=== PATIENT | male | born 1960 | race Caucasian/White ===

== ENCOUNTER → 2016-11-22 | Outpatient (CLI) | payer OTHER | END | disposition home or self-care (01) | LOC: LAB.O 18:54 | PROVIDERS: ATTEND Specialist | DX: M48.04 Spinal stenosis, thoracic region (principal) ==

== ENCOUNTER → 2017-10-11 | Outpatient (CLI) | payer OTHER ==
--- NOTE | 2017-10-12 08:12 | MRI ---
EXAM DESCRIPTION: Lumbar Spine w/o Contrast MRI. CLINICAL HISTORY: LOW BACK PAIN COMPARISON: None. TECHNIQUE: Multiplanar, multiple standard sequences, non contrast MRI, lumbar spine. FINDINGS: Transitional lumbosacral vertebra will be considered L5 for the purposes of this report. This is based upon this assumption that the vertebra with the most inferior rib pair is T12. Rudimentary L5-S1 disc is identified on axial series 601, image 3. No significant bulging. The L5-S1 facets and canal and foramina are also sacralized. Minimal left facet arthrosis. Minimal narrowing of the left foramen. L4-5: Minimal loss of posterior disc space. Trace retrolisthesis. Posterior disc midline bulge and bulge into the base of the left foramen with annular fissure. Disc is abutting the L4 nerve root in the foramen which is moderately narrowed. Mild canal narrowing. Right foramen patent. Bilateral mild flavum ligament hypertrophy and facet arthrosis. Minimal narrowing of the left subarticular recess. L3-4: Disc desiccated, but disc space maintained. Minimal anterior bulging and endplate ridging. Posterior broad-based small disc bulge also encroaching on the foramina more left than right which is moderately narrowed. Minimal narrowing of the right foramen. Minimal arthrosis of the bilateral facets and flavum ligament hypertrophy. Mild canal narrowing. L2-3: Disc desiccation with right side Modic type II endplate reactive changes, anterior disc bulging and endplate ridging. Schmorl's node superior L3 endplate. Right side disc osteophyte complex encroaching on the foramen and abutting the exiting right L2 nerve. Right posterior protrusion of the disc 6 to 7 mm encroaching on the right thecal sac and the descending right L3 nerve with right subarticular recess stenosis. Right paracentral mild canal stenosis. L1-2: Disc desiccation and anterior bulging and endplate ridging. Right anterior Modic type II endplate reactive changes and endplate ridging. Trace posterior disc bulge. Flavum hypertrophy and facet arthrosis. Canal and foramina are patent. T12-L1: Disc desiccation minimal anterior bulging. Right anterior Modic type II endplate reactive changes. Small Schmorl's nodes in the endplates. No posterior disc bulge. Bilateral foramina are patent. Bilateral mild facet arthrosis and flavum ligament hypertrophy. Canal patent. Conus terminates at T12. No scoliosis Paravertebral soft tissues negative. Normal marrow signal in the remaining vertebral bodies and the posterior elements. Vertebral bodies are not compressed at any level. IMPRESSION: 1. Lumbosacral vertebra designated L5 for the purposes of this report based upon location of T12. Rudimentary L5-S1 disc. Canal facets and foramina are sacralized. Transitional vertebra articulations can be a source of abnormal biomechanics and low back pain. 2. L4-5 disc abutting the left L4 nerve root in the foramen. Correlate for radiculopathy. 3. Posterior foraminal narrowing by L3-4 disc bulging. 4. Right posterior L2-3 disc protrusion encroaching on the thecal sac, descending right L3 nerve root and right subarticular recess. Correlate for right L3 radiculopathy. Right side disc osteophyte complex encroaching on the right foramen. Electronically signed by: Carlitos Eng MD 10/12/2017 8:11 AM CDT
== END ==
LOC: MRI 08:00
PROVIDERS: ATTEND Specialist
DX: M99.33 Osseous stenosis of neural canal of lumbar region (principal); M54.5 Low back pain

== ENCOUNTER 2018-02-18 16:14 | Inpatient (IN) | payer BC ==
--- NOTE | 2018-02-18 16:15 | HP ---
SUPERVISING PHYSICIAN: Ayan Salazar M.D. CHIEF COMPLAINT: Left sided abdominal pain. HISTORY OF PRESENT ILLNESS: This is a 57 year-old male patient who came to the hospital as a direct admission from Dr. Murphy's office. Last Sunday he presented to his primary care physician's office with left sided abdominal pain , fever and general malaise at that time. He had stated at that point for approximately 3 to 4 days he had had some left lower quadrant abdominal pain and also had a history of diverticulitis in the past. At that point he had a CT scan of the abdomen and pelvis done as well as was placed on Flagyl and Cipro and was sent home from the office. He went back to Dr. Murphy's office on for a followup regarding the CT scan. He was told at that time he did have diverticulitis, however his symptoms had improved after being placed on the antibiotics. Therefore the plan was to continue the full 10 day course of antibiotics and then followup after that. But over the weekend the patient started to feel worse again with fatigue and malaise along with low-grade fever at 99.5 and generally not feeling well. He continued to have abdominal pain which seemed to move down a little bit behind his bladder and gave him a feeling that he needed to constantly have a bowel movement. He states that he has had some soft bowel movements and has not had to strain to go, but continued to feel like he needed to go even after he went. So he went back to the doctor's office today where they repeated a CBC which did not show any leukocytosis but given his symptoms he was referred for direct admission here at the hospital. At time of examination the patient is alert and oriented with no distress, however he does have significant left lower quadrant tenderness to palpation. PAST MEDICAL HISTORY: 1. Type 2 diabetes mellitus. 2. Chronic low back pain. 3. Obstructive sleep apnea and he does not utilize a CPAP. 4. Hypertension. 5. Hyperlipidemia. PAST SURGICAL HISTORY: 1. Colonoscopy for which he was told he had diverticulosis in the past and had a polyp which was removed as well. 2. Back surgery in October of 2016 of his T-spine. 3. Appendectomy. CURRENT MEDICATIONS: 1. Amlodipine 10 mg p.o. daily. 2. Aspirin 81 mg p.o. daily. 3. Atenolol 100 mg p.o. daily. 4. Invokana 100 mg p.o. daily. 5. Celebrex 200 mg p.o. daily. 6. Hydrochlorothiazide 25 mg p.o. daily. 7. Metformin XR 1500 mg p.o. daily. 8. Simvastatin 10 mg daily. ALLERGIES: NO KNOWN DRUG ALLERGIES. FAMILY HISTORY: Father and had Alzheimer's as well as myocardial infarction. Mother has and she had COPD and lung cancer. Brother who is healthy. SOCIAL HISTORY: Occasional alcohol. No smoking. Does take edible marijuana maybe once a month. REVIEW OF SYSTEMS: CONSTITUTIONAL: Positive for fever. No chills. No recent weight loss or weight gain. Positive for fatigue and malaise. HEENT: No headaches, vision changes, ear pain, nasal congestion or throat pain. RESPIRATORY: No cough, hemoptysis or pleuritic chest pain. CARDIOVASCULAR: No chest pain, palpitations or peripheral edema. GASTROINTESTINAL: Positive for nausea but no vomiting. No constipation. No diarrhea. Positive for left sided abdominal pain. GENITOURINARY: No dysuria, frequency or flank pain. HEMATOLOGIC: No easy bruising or transfusion reaction. MUSCULOSKELETAL: Positive for chronic back pain but it has actually been doing fairly well lately. No joint pain or joint swelling. No muscle cramps. ENDOCRINE: No polydipsia, polyuria or polyphagia. No heat or cold intolerance. NEUROLOGIC: No syncope. No seizures. No paresthesias. INTEGUMENT: No rashes, lesions or wounds. PHYSICAL EXAMINATION: VITAL SIGNS: Blood pressure 144/79, heart rate 55, respiratory rate 18, temperature 97.5, oxygen saturation 95%. GENERAL: Mr. Syed is a 57 year-old male patient who is in no severe distress at this time. HEENT: Head is normocephalic and atraumatic. Eyes: Pupils are equal and reactive. Nose: With no drainage. Throat: Moist mucosa. NECK: Supple. Midline trachea. No jugular venous distention. CHEST: Symmetrical with equal rise and fall of the chest with inspiration and expiration. Lung sounds are clear to auscultation and percussion bilaterally. CARDIOVASCULAR: Regular rate and rhythm. Normal S1 and S2. ABDOMEN: Obese, soft. Positive bowel sounds. He does have noted left lower quadrant tenderness to palpation. GENITOURINARY: Exam is deferred. EXTREMITIES: Lower extremities with no edema. 2+ pulses. Capillary refill less than 2 seconds. LABORATORY: So far, is just what was done at the office and showed a white count of 7.4, hemoglobin 15.8, hematocrit 46.4, platelet count 121. ASSESSMENT: 1. Acute diverticulitis, failed outpatient therapy. 2. Diabetes mellitus type 2. 3. Hypertension. PLAN: At this point, he will be placed in inpatient setting and placed on IV antibiotics. I have repeated a CT scan and it is pending at this time. I have also spoken with Dr. Esposito who agrees to consult on the case as well and agrees with the current antibiotics as well as repeating the CT scan. We are going to hold off on DVT prophylaxis until I know for sure he is not going to have to go for surgical intervention. I will resume his home medications once they are reconciled in the computer. Will repeat laboratory values in the morning as well to ensure that they remain acceptable. #[id number] [facility]
[2018-02-18] MEDS ORDERED: SODIUM CHLORIDE 0.9% (FLUSH) 10 ML SYG IV PRN (17:38)
[2018-02-18] MEDS ORDERED: metroNIDAZOLE IV PREMIX 500MG 100 ML IVPB ONE ×2 (17:48→20:18)
[2018-02-18] MEDS ORDERED: metroNIDAZOLE IV PREMIX 500MG 500 MG in PREMIX BAG 1 BAG IVPB SCH (18:00)
[2018-02-18] MEDS: levoFLOXacin 750MG IV 750 MG in PREMIX BAG 1 BAG IVPB SCH (18:02)
[2018-02-18] MEDS: IV SET AND CAP CHANGE INJ INJ SCH (18:02)
[2018-02-18] MEDS: metroNIDAZOLE IV PREMIX 500MG 500 MG in PREMIX BAG 1 BAG IVPB SCH ×2 (18:02→23:54)
--- NOTE | 2018-02-18 19:18 | CT ---
EXAM: Abdomen/Pelvis w/Contrast CLINICAL INDICATION: 57-year-old male with diverticulitis and worsening symptoms since last week. COMPARISON: Noncontrast CT abdomen and pelvis 02/12/2018. EXAMINATION: CT of the abdomen and pelvis was performed following intravenous administration of contrast. Oral contrast was not administered. Multiplanar reformatted images were provided. This exam was performed according to our departmental dose optimization program which includes use of automated exposure control, adjustment of the mA and/or kV according to patient size and/or use of iterative reconstruction technique. FINDINGS: Chest: Evaluation through the lung bases reveals no focal opacity, pleural effusion or pneumothorax. Heart size is within normal limits. No pericardial effusion. Abdomen and pelvis: The liver, gallbladder, pancreas, spleen, bilateral kidneys and bilateral adrenal glands are within normal limits. Splenomegaly of uncertain etiology measuring up to 17 cm. Coarse calcification present within the inferior pole of the bilateral kidneys compatible with nonobstructing calculi. The vessels are patent and normal in caliber. No abdominopelvic lymph nodes are noted to be pathologically enlarged by CT measurement criteria. The bowel is within normal limits without abnormal bowel wall thickness or bowel dilation. Multiple diverticula of the sigmoid colon with interval worsening of bowel wall thickening and stranding at the level of the mid sigmoid compatible with worsening diverticulitis. No discrete organizing fluid collection or free intra-abdominal air present. The possibility of microperforation cannot be excluded. No free air. No free abdominopelvic fluid collections. The appendix is nonvisualized. The osseous structures reveal degenerative change. Multilevel endplate irregularities compatible with degenerative change. Incompletely visualized thoracic spine stabilization hardware. Six lumbar type vertebral bodies with lumbarization of the S1 level and hemisacralization of the RIGHT side transverse process. Posterior osseous spurring and disk bulge present throughout the lumbar spine with multilevel neural foraminal narrowing. IMPRESSION: 1. Multiple diverticula of the sigmoid colon with interval increase in bowel wall thickening and stranding at the level of the mid sigmoid compatible with worsening diverticulitis. 2. Coarse calcification present within the inferior pole of the bilateral kidneys compatible with nonobstructing calculi. 3. Splenomegaly of uncertain etiology. Electronically signed by: Halie Canseco MD 02/18/2018 7:17 PM CDT
[2018-02-18] MEDS: SODIUM CHLORIDE 0.9% 1000ML 1,000 ML IVS PRN (20:45)
[2018-02-19] MEDS ORDERED: metroNIDAZOLE IV PREMIX 500MG 100 ML IVPB ONE ×4 (03:59→20:01)
[2018-02-19] MEDS: MORPHINE SULFATE INJ 10 MG/ML VIAL IV PRN ×4 (04:40→20:08)
[2018-02-19] MEDS: SODIUM CHLORIDE 0.9% 1000ML 1,000 ML IVS PRN ×2 (04:44→14:20)
[2018-02-19] MEDS: metroNIDAZOLE IV PREMIX 500MG 500 MG in PREMIX BAG 1 BAG IVPB SCH ×3 (05:52→18:04)
[2018-02-19] MEDS ORDERED: NON-FORMULARY MEDICATION 1 EA MIS (Atenolol [Atenolol] 100 MG) PO SCH (11:15)
[2018-02-19] MEDS ORDERED: CANAGLIFLOZIN 100 MG PO SCH (11:15)
[2018-02-19] MEDS ORDERED: amLODIPine BESYLATE 5 MG TAB ONE (11:25)
[2018-02-19] MEDS ORDERED: ATENOLOL 25 MG TAB ONE (11:26)
[2018-02-19] MEDS: SIMVASTATIN 10 MG TAB PO SCH (11:33)
[2018-02-19] MEDS: ASPIRIN (CHEWABLE) 81 MG TAB PO SCH (11:33)
--- NOTE | 2018-02-19 11:33 | PN ---
SUPERVISING PHYSICIAN: Citlaly Salazar MD DATE: 02/19/18 SUBJECTIVE: The patient feels a little bit better today. He did have some pain overnight and required some pain medication. CT scan that was done shows a little bit of worsening of the diverticulitis from that done last week. He does complain of being thirsty and actually a little bit hungry at this time. OBJECTIVE: VITAL SIGNS: Blood pressure 155/83. Heart rate 54. Respiratory rate 15. Temperature 98.2. Oxygen saturation 95%. GENERAL: Mr. Syed is a 57-year-old male patient who is in no active distress currently. NEUROLOGIC: Alert and oriented. LUNGS: Clear to auscultation bilaterally. CARDIOVASCULAR: Regular rate and rhythm. Normal S1, S2. ABDOMEN: Soft, soft. Positive bowel sounds. Still with left lower quadrant tenderness to palpation. LABORATORY: White count 4.1, stable hemoglobin, platelet count 93. Chemistry unremarkable although he does have a glucose of 142. He also had a liver ultrasound today that was scheduled as outpatient, so the results are not actually done yet. ASSESSMENT: 1. Acute diverticulitis, failed outpatient p.o. antibiotic therapy. 2. Diabetes mellitus, type 2. 3. Hypertension. PLAN: Continue the current IV antibiotics. Dr. Esposito has seen the patient this morning as well and feels he can advance to a clear liquid diet, so I have ordered this as well. I have updated the patient on plan of care. We will recheck labs tomorrow morning. #[id number] [facility]
[2018-02-19] MEDS: amLODIPine BESYLATE 5 MG TAB PO SCH (11:43)
[2018-02-19] MEDS ORDERED: ATENOLOL 25 MG TAB PO SCH (11:45)
--- NOTE | 2018-02-19 12:54 | US ---
EXAM DESCRIPTION: Liver ultrasound limited right upper quadrant CLINICAL HISTORY: R10.84 COMPARISON: None Available. TECHNIQUE: Right upper quadrant ultrasound FINDINGS: Pancreas aorta and inferior vena cava are not well seen due to overlying bowel gas obscuring much of the retroperitoneum. Liver: The liver is homogeneous in texture with increased echogenicity consistent with diffuse hepatic steatosis. No focal liver lesion or intrahepatic bile duct dilatation. No liver surface irregularity. Normal appearance of the portal vein and hepatic veins. Liver length of 17.1 cm is within normal limits. Gallbladder: Gallbladder appears normal with no intraluminal stones or wall thickening. Common bile duct: Normal caliber measuring 5.4 mm. Right kidney: Renal length is 11 cm. Normal cortical echogenicity. Cortical thickness is normal. No hydronephrosis is seen. No renal mass. 7 mm echogenic focus is seen which may be a small right renal calculus. Another questionable 6 mm echogenic focus is seen, not as convincing. IMPRESSION: Hyperechoic liver consistent with diffuse hepatic steatosis. Normal sonographic appearance of the gallbladder and common bile duct. Electronically signed by: Anup Zaragoza MD 02/19/2018 11:45 AM CDT
--- NOTE | 2018-02-19 13:54 | CONS ---
DATE OF CONSULTATION: 02/19/18 HISTORY OF PRESENT ILLNESS: The patient is a 57-year-old male who was seen by Dr. Murphy last week with abdominal pain. CT scan revealed diverticulitis and he was started on oral Cipro and Flagyl. He initially improved and then over this past weekend, he became much more uncomfortable. He was seen in Dr. Murphy's office yesterday and despite having a normal white count was admitted for failure of outpatient therapy. A CT scan last night revealed no signs of perforation or abscess, but did show worsening inflammatory process involving the sigmoid colon. He denies change in his bowel habits, blood per rectum or melanotic stools. He does report that he had a colonoscopy approximately 2 years ago which revealed the diverticular disease and a single polyp which was benign and was scheduled for repeat colonoscopy in 5 years. PAST MEDICAL HISTORY: 1. Type 2 diabetes mellitus. 2. Back pain, for which he has undergone a major procedure in the thoracic spine. 3. Obstructive sleep apnea, but does not use CPAP. 4. Hypertension. 5. Hyperlipidemia. PAST SURGICAL HISTORY: 1. Appendectomy as a child. 2. Major thoracic spine surgery. CURRENT MEDICATIONS: 1. Amlodipine. 2. Aspirin. 3. Atenolol. 4. Invokana. 5. Celebrex. 6. Hydrochlorothiazide. 7. Metformin. 8. Simvastatin. ALLERGIES: NO KNOWN DRUG ALLERGIES. FAMILY HISTORY: History of chronic obstructive pulmonary disease, lung cancer, myocardial infarction. SOCIAL HISTORY: The patient drinks alcohol rarely and does not smoke. REVIEW OF SYSTEMS: Unremarkable except as in the history of present illness. PHYSICAL EXAMINATION: GENERAL: The patient is awake, alert, cooperative, in mild to moderate acute distress. VITAL SIGNS: The patient is currently afebrile, normotensive. HEENT: Sclerae nonicteric. Mucous membranes moist. NECK: Without adenopathy. BACK: Without CVA tenderness. HEART: Regular rate and rhythm. ABDOMEN: Soft, diffusely tender with mild guarding. There is no mass. RECTAL: Deferred. EXTREMITIES: Without cyanosis, clubbing or edema. LABORATORY: Normal white blood cell count this morning. CT scan revealed worsening diverticulitis with no free air. PLAN: The patient has been at bowel rest overnight. He denies nausea, fever, but is still quite uncomfortable on physical examination. I agree with the continued IV antibiotics with the increased dose as opposed to his outpatient dosing. We will give him a clear liquid diet and his home medications. #[id number] [facility]
[2018-02-19] MEDS: levoFLOXacin 750MG IV 750 MG in PREMIX BAG 1 BAG IVPB SCH (16:30)
[2018-02-20] MEDS: metroNIDAZOLE IV PREMIX 500MG 500 MG in PREMIX BAG 1 BAG IVPB SCH ×5 (00:30→23:40)
[2018-02-20] MEDS: SODIUM CHLORIDE 0.9% 1000ML 1,000 ML IVS PRN ×3 (00:55→22:17)
[2018-02-20] MEDS ORDERED: metroNIDAZOLE IV PREMIX 500MG 100 ML IVPB ONE ×5 (04:27→19:29)
[2018-02-20] MEDS: CANAGLIFLOZIN 100 MG PO SCH (06:43)
[2018-02-20] MEDS: MORPHINE SULFATE INJ 10 MG/ML VIAL IV PRN ×3 (08:33→20:32)
[2018-02-20] MEDS ORDERED: MAGNESIUM HYDROXIDE 30 ML UD PO ONE (09:01)
[2018-02-20] MEDS ORDERED: MAGNESIUM HYDROXIDE 30 ML UD ONE (09:11)
[2018-02-20] MEDS: ASPIRIN (CHEWABLE) 81 MG TAB PO SCH (09:12)
[2018-02-20] MEDS: SIMVASTATIN 10 MG TAB PO SCH (09:12)
[2018-02-20] MEDS: ATENOLOL 25 MG TAB PO SCH (09:12)
[2018-02-20] MEDS: amLODIPine BESYLATE 5 MG TAB PO SCH (09:12)
--- NOTE | 2018-02-20 11:31 | RAD ---
EXAM DESCRIPTION: Abdomen Flat Upright CLINICAL HISTORY: abd pain COMPARISON: None. FINDINGS: AP supine and upright views of the abdomen show a nonspecific, nonobstructive bowel gas pattern with no evidence for free intraperitoneal air. No air-filled dilated loops of small bowel are seen. No significant air-fluid levels are identified. No obvious organomegaly is seen. There is an approximately 1 cm calcification overlying the lower pole region of the left kidney. No obvious calcifications in the expected location of the ureters is seen. Spinal hardware fixation of the lower thoracic spine is visualized. The visualized lung bases are unremarkable. IMPRESSION: Nonspecific abdominal series Left nephrolithiasis is seen. Electronically signed by: Anshul Tse MD 02/20/2018 11:30 AM CDT
[2018-02-20] MEDS: levoFLOXacin 750MG IV 750 MG in PREMIX BAG 1 BAG IVPB SCH (16:45)
--- NOTE | 2018-02-20 16:52 | PN ---
DATE: 02/20/18 SUPERVISING PHYSICIAN: Ayan Salazar M.D. SUBJECTIVE: The patient is lying in bed. He continues complaints of abdominal discomfort in the lower left and right quadrants as well as extending up into the right upper quadrant. He says he feels like the pain is behind his bladder , but not in his back. Denies chest pain, nausea or vomiting, shortness of breath. OBJECTIVE: VITAL SIGNS: He is afebrile, blood pressure 147/80, respiratory rate 18, O2 sat is 94% on room air. RESPIRATORY: Essentially clear to auscultation bilaterally. CARDIAC: Regular rate and rhythm. GASTROINTESTINAL: Abdomen is soft, nondistended. It is moderately tender in the left lower and right lower quadrant and it is mildly tender in the right upper quadrant. There is no guarding or rebound tenderness. Bowel sounds are very hypoactive. NEUROLOGIC: He is awake, alert and oriented times three. LABORATORY: WBCs are 4.2. Electrolytes are basically within normal limits with the exception of his calcium is slightly low at 8.3. Abdominal x-ray shows nonspecific abdominal series. All other labs and films have been reviewed via the EMR. ASSESSMENT: 1. Acute diverticulitis, failed outpatient p.o. antibiotic therapy. 2. Diabetes mellitus, type 2. 3. Hypertension. 4. Fatty liver disease. PLAN: We will continue present supportive care. He will continue on clear liquids and I will follow as Dr. Esposito recommends. I have also given him 60 mL of Milk of Magnesia and will repeat his lab in the morning. Will continue to monitor him closely and follow as needed. Dr. Salazar is the collaborating physician available for consultation. #[id number] [facility]
[2018-02-21] MEDS: CANAGLIFLOZIN 100 MG PO SCH (06:13)
[2018-02-21] MEDS: metroNIDAZOLE IV PREMIX 500MG 500 MG in PREMIX BAG 1 BAG IVPB SCH ×2 (06:13→12:45)
[2018-02-21] MEDS ORDERED: POTASSIUM CHLORIDE 20 MEQ TAB PO ONE (08:58)
[2018-02-21] MEDS ORDERED: MAGNESIUM HYDROXIDE 30 ML UD PO ONE (09:17)
[2018-02-21] MEDS: ASPIRIN (CHEWABLE) 81 MG TAB PO SCH (09:23)
[2018-02-21] MEDS: ATENOLOL 25 MG TAB PO SCH (09:23)
[2018-02-21] MEDS: amLODIPine BESYLATE 5 MG TAB PO SCH (09:23)
[2018-02-21] MEDS: SIMVASTATIN 10 MG TAB PO SCH (09:27)
[2018-02-21] MEDS: SODIUM CHLORIDE 0.9% 1000ML 1,000 ML IVS PRN ×2 (09:30→20:04)
--- NOTE | 2018-02-21 10:23 | PN ---
SUPERVISING PHYSICIAN: Citlaly Salazar MD DATE: 02/21/18 SUBJECTIVE: The patient is standing up in his hospital room. He says he feels some better although he still has some lower abdominal pain. He has only had two very small bowel movements overnight. He has tolerated his clear liquids without any problems. Dr. Esposito was in the room during his examination and we discussed his plan of care. OBJECTIVE: VITAL SIGNS: Afebrile. Heart rate 56. Blood pressure 162/89. Respiratory rate 18. O2 saturation 95% on room air. RESPIRATORY: Essentially clear to auscultation bilaterally. CARDIAC: Regular rate and rhythm. GASTROINTESTINAL: Abdomen is soft, nondistended, very mildly tender in the left and right lower quadrants. There is no rebound tenderness or guarding. Bowel sounds are very hypoactive. NEUROLOGIC: He is awake, alert and oriented times three. LABORATORY: Potassium is slightly low this morning at 3.5. Glucose is 136. Calcium 8.3. AST 69. The remainder of his chemistry is within normal limits. All other labs and films have been reviewed via the EMR. ASSESSMENT: 1. Acute diverticulitis, failed outpatient p.o. antibiotic therapy. 2. Diabetes mellitus, type 2. 3. Hypertension. 4. Fatty liver disease. PLAN: We will continue present supportive care. I will defer to Dr. Esposito for recommendations of patient's care. Per Dr. Esposito, general surgeon, we will give him an additional dose of 60 mL of Milk of Magnesia. I will also change his IV Flagyl to p.o. this evening. He will get his IV dose of Levaquin today and we will change his Levaquin to p.o. tomorrow. It is to be noted that he will be on a higher dose of Levaquin of 750 mg daily. He has also gotten a dose of potassium replacement and I will check his labs in the morning. Hopefully he can advance his diet tomorrow and he can be discharged in the next day so. We will continue to monitor him closely and follow as needed. #[id number] [facility]
[2018-02-21] MEDS ORDERED: metroNIDAZOLE IV PREMIX 500MG 100 ML IVPB ONE (12:42)
[2018-02-21] MEDS ORDERED: levoFLOXacin 750MG IV 750 MG in PREMIX BAG 1 BAG IVPB SCH (17:00)
[2018-02-21] MEDS: metroNIDAZOLE 500 MG TAB PO SCH (17:47)
[2018-02-21] MEDS: IV SET AND CAP CHANGE INJ INJ SCH (18:21)
[2018-02-21] MEDS ORDERED: ZOLPIDEM TARTRATE 5 MG TAB PO PRN (19:45)
[2018-02-21] MEDS ORDERED: ALPRAZolam 0.25 MG TAB PO PRN (19:45)
[2018-02-21] MEDS ORDERED: MAGNESIUM HYDROXIDE 30 ML UD PO SCH (21:09)
[2018-02-22] MEDS: metroNIDAZOLE 500 MG TAB PO SCH ×2 (00:22→06:04)
[2018-02-22 02:47] VITALS: TEMP 97.6
[2018-02-22] MEDS: SODIUM CHLORIDE 0.9% 1000ML 1,000 ML IVS PRN (03:55)
[2018-02-22 06:12] VITALS: O2SAT 96
--- NOTE | 2018-02-22 06:42 | RAD ---
PROCEDURE: Abdomen Flat Upright Clinical History: Diverticulitis Indication: Same as above Comparison: 02/20/2018 Technique: Three views of the abdomen and pelvis were done. Findings: There is no gross evidence of free air in the abdomen or the pelvis . The small and large bowel gas pattern does not show any evidence of obstruction, ileus or bowel wall thickening. The visualized lung bases are unremarkable . Small calcified enterolith is seen in the left lower quadrant of the abdomen There is no constipation. Impression: Unremarkable bowel gas pattern Location of Interpretation: [id number] Electronically signed by: Zeus Richardson MD 02/22/2018 6:41 AM CDT Workstation: [id number]
[2018-02-22] MEDS: CANAGLIFLOZIN 100 MG PO SCH (07:57)
[2018-02-22] MEDS: ATENOLOL 25 MG TAB PO SCH (08:58)
[2018-02-22] MEDS: amLODIPine BESYLATE 5 MG TAB PO SCH (08:58)
[2018-02-22 08:59] VITALS: BP 144/78
[2018-02-22] MEDS: SIMVASTATIN 10 MG TAB PO SCH (08:59)
[2018-02-22] MEDS: ASPIRIN (CHEWABLE) 81 MG TAB PO SCH (08:59)
[2018-02-22] MEDS ORDERED: levoFLOXacin 500 MG TAB PO SCH (14:00)
--- NOTE | 2018-02-26 14:14 | DS ---
SUPERVISING PHYSICIAN: Citlaly Salazar MD ADMISSION DIAGNOSIS: 1. Acute diverticulitis, failed outpatient therapy. 2. Diabetes mellitus, type 2. 3. Hypertension. DISCHARGE DIAGNOSIS: 1. Acute diverticulitis, failed to respond to outpatient treatment with oral antibiotics, improving with parenteral antibiotics and being stable. 2. Diabetes mellitus, type 2, stable. 3. Hypertension, stable. 4. Fatty liver disease, chronic. 5. Thrombocytopenia, uncertain etiology although the patient showed splenomegaly on CT findings. REASON FOR HOSPITALIZATION: Mr. Syed is a 57-year-old male patient who initially presented on 02/18/18 for direct admission from Dr. Murphy's office. It was noted the Sunday before, he presented Dr. Murphy's office with left sided abdominal pain, fever and general malaise. He had stated at that point for approximately 3 to 4 days he had had some left lower quadrant abdominal pain and also had a history of diverticulitis in the past. He then had a CT scan of the abdomen and pelvis and was placed on Flagyl and Cipro and treated as an outpatient. He presented back to Dr. Murphy's office on for a followup regarding the CT scan. He was told at that time he did have diverticulitis, however, his symptoms had improved after being placed on the antibiotics. Therefore, the plan was to continue the full 10-day course of antibiotics and then followup after that. However, over the weekend, the patient started to feel worse again with fatigue and malaise along with low- grade fever at 99.5 and generally not feeling well. He continued to have increasing abdominal pain which seemed to move down a little bit behind his bladder and gave him a feeling that he needed to constantly have a bowel movement. He noted that he had had some soft bowel movements and not had to strain to go, but continued to feel like he needed to go even after he went. He went back to the Dr. Murphy's office on the date of admission where they repeated a CBC which did not show any leukocytosis, but given his continued symptoms that were worsening despite outpatient treatment, he was referred for direct admission to the hospital. He was admitted to the Medical/Surgical Floor in stable condition for treatment of left lower quadrant tenderness secondary to diverticulitis failing to respond to outpatient treatment. LABORATORY: White count on admission was normal at 5,400. At discharge, it was 4,200. Hemoglobin and hematocrit were stable and at discharge were 14.8 and 44.3 respectively. Platelet counts were low and at discharge was 89,000. Differential was without a left shift. On chemistries, initial electrolytes were within normal limits with potassium 3.6, BUN 17, creatinine 1.04. At discharge, potassium was a little low at 3.4. Otherwise, all other electrolytes were within normal limits. BUN was less than 5 and creatinine 0.94. Calcium was normal and at discharge was 8.5. Liver functions were all normal at admission. However, prior to discharge, his AST had gone up slightly to 69. No urinalysis was completed. MICROBIOLOGY: No specimens were submitted. RADIOLOGY: Initially he had abdominopelvic CT on admission from Dr. Murphy's office with contrast and per radiologic interpretation there was note of multiple diverticula in the sigmoid colon with interval increase in bowel wall thickening and stranding to the level of the mid sigmoid, compatible with worsening diverticulitis. There was also note of coarse calcifications in the superior pole of bilateral kidneys compatible with nonobstructing calculi. There was note of of splenomegaly of uncertain etiology. Additional radiographic studies included a liver ultrasound and per radiologic interpretation showed hyperechoic liver consistent with diffuse hepatic steatosis, normal sonographic appearance of the gallbladder and common bile duct. This was followed up with additional abdominal x-rays. On 02/20/18 per radiologic interpretation showed nonspecific abdominal series. Final series was completed on date of discharge, 02/22/18 and per radiologic interpretation shows unremarkable bowel gas pattern. CONSULTATIONS: Medical general surgery with Dr. Esposito. Please see his consultation note for full details. PHYSICAL EXAMINATION AT DISCHARGE: VITAL SIGNS: Temperature 97.6. Pulse 58. Blood pressure 144/78. Oxygen saturation 96% on room air. GENERAL APPEARANCE: The patient was pleasant, in no acute distress, complaining of no additional pain. CHEST: Lungs clear to auscultation bilaterally. HEART: Regular rate and rhythm. ABDOMEN: Soft, nondistended with just very mild continued tenderness on the right lower quadrant. Bowel sounds were normal sounding. NEUROLOGIC: Alert and oriented times 3. HOSPITAL COURSE: Mr. Syed was a direct admission as noted above for complicated diverticulitis that had failed to respond to outpatient treatment measures. He was started on IV antibiotics to include Flagyl and Levaquin as well as placed initially on NPO status. After his pain resolved and he showed some clinical improvement, his diet was advanced. Dr. Esposito did follow the patient along and the patient showed no complications. On the morning of discharge, he was clinically improved well enough to continue with outpatient management. PLAN: Mr. Syed was discharged on 02/22/18 with instructions to followup with Dr. Murphy on 02/26/18 at 14:30. It should be noted he did have evidence of splenomegaly on the CT findings along with thrombocytopenia and this needs to be followed up in the outpatient setting. He was to resume his home medications as instructed. Diet was to be low residual diet as tolerated. Activity to increase as per physical therapy and as tolerated. He was told to return to the hospital should he have any concerning symptoms. At discharge, new prescriptions included: 1. Align 4 mg daily. 2. Levaquin 750 mg daily, #7. 3. Flagyl 500 mg 3 times a day, #21. All other medications prior to admission were continued. Condition on discharge was stable and improved. #[id number] #[id number] [facility]
== END 2018-02-22 11:45 | disposition home or self-care (01) | DRG 392 ==
LOC: MS 16:14
PROVIDERS: ADMIT Nurse Practitioner; ATTEND Nurse Practitioner Family
PROC: BW210ZZ Computerized Tomography (CT Scan) of Abdomen and Pelvis using High Osmolar Contrast (ICD-10-PCS; principal; 2018-02-18)
DX: K57.32 Diverticulitis of large intestine without perforation or abscess without bleeding (principal); K76.0 Fatty (change of) liver, not elsewhere classified; M54.9 Dorsalgia, unspecified; E11.9 Type 2 diabetes mellitus without complications; G47.33 Obstructive sleep apnea (adult) (pediatric); I10 Essential (primary) hypertension; E78.5 Hyperlipidemia, unspecified; D69.6 Thrombocytopenia, unspecified; R16.1 Splenomegaly, not elsewhere classified; Z79.82 Long term (current) use of aspirin; Z79.1 Long term (current) use of non-steroidal anti-inflammatories (NSAID); Z79.84 Long term (current) use of oral hypoglycemic drugs; Z79.899 Other long term (current) drug therapy

== ENCOUNTER 2018-05-02 02:54 | Emergency (ER) | payer BC ==
[2018-05-02] MEDS ORDERED: ONDANSETRON INJ 4 MG/2 ML VIAL IV ONE (03:22)
[2018-05-02] MEDS ORDERED: MORPHINE SULFATE INJ 10 MG/ML VIAL IV ONE (03:22)
--- NOTE | 2018-05-02 03:22 | ED.PDOC ---
History of Present Illness - General Chief Complaint: Abdominal Pain Stated Complaint: lower abd pain Time Seen by Provider: 05/02/18 03:14 Information Source: patient Exam Limitations: no limitations - History of Present Illness Initial Comments: LLQ ABD PAIN, STARTED TONIGHT. SEVERE SPASMS. FEELS LIKE THE DIVERTICULITIS BOUT FROM 3 MOS AGO. DIVERTICULITIS FIRST DX'D IN 2005. LLQ PAIN, RADIATING TO BLADDDER. POS DIARRHEA. POS NAUSEA BUT NO EMESIS. ABD FEELS BLOATED. NOTE: PT IS NOT CURRENTLY ON LEVAQUIN THUS THERE IS NO MEDICATION INTERACTION WITH ZOFRAN. Abdominal Pain Onset Location: LLQ, generalized abdomen Pain Radiation: groin Quality: cramping Timing/Duration: 4-6 hours Improving Factors: nothing Worsening Factors: nothing Associated Symptoms: diarrhea, nausea/vomiting Review of Systems - Review of Systems Constitutional: Denies: chills, diaphoresis, fever, malaise, weakness EENTM: States: no symptoms reported Respiratory: States: no symptoms reported Cardiology: States: no symptoms reported Gastrointestinal/Abdominal: States: abdominal pain, diarrhea, nausea Genitourinary: Denies: dysuria, frequency, hematuria Musculoskeletal: States: no symptoms reported Skin: States: no symptoms reported Neurological: States: no symptoms reported Endocrine: States: no symptoms reported Hematologic/Lymphatic: States: no symptoms reported All other Systems: Reviewed and Negative Past Medical History (General) - Patient Medical History Hx Seizures: No Hx Stroke: No Hx Asthma: No Hx of COPD: No Hx Congestive Heart Failure: No Hx Pacemaker: No Hx Hypertension: Yes Hx Diabetes: Yes Hx MRSA: No - Social History Hx Alcohol Use: No Hx Substance Use: No Hx Physical Abuse: No Hx Emotional Abuse: No Family Medical History - Family History Father Family History: Unknown Mother Family History: Unknown Physical Exam - Physical Exam General Appearance: Alert, Obvious distress, Obese Eyes, Ears, Nose, Throat Exam: PERRL/EOMI, normal ENT inspection Neck: full range of motion, normal inspection Respiratory: chest non-tender, lungs clear, normal breath sounds Cardiovascular/Chest: normal peripheral pulses, regular rate, rhythm, no murmur Peripheral Pulses: No deficit Gastrointestinal/Abdominal: normal bowel sounds, no organomegaly, no pulsatile mass, distended, tenderness - LLQ > GENERALIZED. Male Genitalia: normal genitalia Back Exam: CVA tenderness (R), CVA tenderness (L) Extremity: normal range of motion, normal inspection Neurologic: alert, normal mood/affect Skin Exam: normal color, warm/dry Lymphatic: no adenopathy Progress - Progress Progress: 05/02/18 04:47 CT = BL NEPHROLITHIASIS. LARGEST L SIDE 1.1 CM BUT NON-OBSTRUCTING. FATTY LIVER. HEPATOSPLEENOMEGALY. DIVERTICULOSIS BUT NO DIVERTICULITIS. NOT A SURGICAL ABDOMEN. CBC UNREMARKABLE. UA PROTEIN AND GLUCOSE FROM NIDDM. CMP ELEV AST FROM FATTY LIVER. SAFE FOR DC HOME ON CODEINE FOR PAIN CONTROL AND ZOFRAN FOR NAUSEA. NO ABX INDICATED. Departure - Departure Clinical Impression: LLQ abdominal pain, Nausea, Elevated SGOT (AST), Steatohepatitis, Hepatosplenomegaly, Nephrolithiasis LLQ abdominal tenderness Qualifiers: Presence of rebound: absent Qualified Code(s): R10.814 - Left lower quadrant abdominal tenderness Diarrhea Qualifiers: Diarrhea type: unspecified type Qualified Code(s): R19.7 - Diarrhea, unspecified Proteinuria Qualifiers: Proteinuria type: unspecified Qualified Code(s): R80.9 - Proteinuria, unspecified Diabetes mellitus Qualifiers: Diabetes mellitus type: type 2 Diabetes mellitus emt intermediate insulin use: without emt intermediate use Diabetes mellitus complication status: without complication Qualified Code(s): E11.9 - Type 2 diabetes mellitus without complications Diverticulosis Qualifiers: Diverticulosis site: diverticulosis of large intestine Diverticulosis bleeding : diverticulosis without bleeding Qualified Code(s): K57.30 - Diverticulosis of large intestine without perforation or abscess without bleeding Disposition: Discharge to Home or Self Care Condition: Good Departure Forms: ED Discharge - Pt. Copy, Patient Portal Self Enrollment Instructions: Kidney Stones in Adults Diet: diabetic diet Activity: increase activity as tolerated Referrals: Trace Murphy MD [Primary Care Provider] - 1 Week Prescriptions: Acetaminophen W/ Codeine [Acetaminophen/Codeine Javon] 1 - 2 tab PO Q8H PRN #15 tab PRN Reason: Pain Ondansetron [Zofran Odt] 8 mg PO Q8H PRN #15 tab PRN Reason: Nausea Home Medications: Ambulatory Orders Aspirin [Aspirin Adult Low Dose] 81 mg PO DAILY 02/18/18 Atenolol 100 mg PO DAILY 02/18/18 Canagliflozin [Invokana] 100 mg PO DAILY 02/18/18 Celecoxib [Celebrex] 200 mg PO DAILY 02/18/18 Hydrochlorothiazide 25 mg PO DAILY 02/18/18 Simvastatin 10 mg PO DAILY 02/18/18 Acetaminophen W/ Codeine [Acetaminophen/Codeine Javon] 1 - 2 tab PO Q8H PRN #15 tab 05/02/18 Ondansetron [Zofran Odt] 8 mg PO Q8H PRN #15 tab 05/02/18 Additional Instructions: Please see your doctor in 3-5 days if the pain is not improving.
[2018-05-02 03:24] VITALS: TEMP 97.6; O2SAT 96
--- NOTE | 2018-05-02 03:57 | CT ---
CT abdomen and pelvis without contrast on 05/02/2018 CLINICAL INDICATION: Generalized abdominal pain, history of diverticulitis TECHNIQUE: Multiple axial images are obtained throughout the abdomen and pelvis without the administration of contrast. This exam was performed according to our departmental dose-optimization program, which includes automated exposure control, adjustment of the mA and/or kV according to patient size and/or use of iterative reconstruction technique. Total DLP is 1532.38 mGy*cm. COMPARISON: 02/18/2018 FINDINGS: Abdomen: The lung bases are clear. There is fatty infiltration of the liver. Splenomegaly is noted with the spleen measuring at least 18 cm in greatest [id number] length. Mild hepatomegaly is noted. There are nonobstructing bilateral renal stones with the largest stone in the lower pole of the left kidney measuring 1.1 cm. There are no ureteral stones and no hydronephrosis. The unenhanced solid abdominal organs are otherwise unremarkable. Vascular calcifications are noted. There is no abdominal adenopathy. There is no free fluid or free air within the abdomen. The abdominal portion of the GI tract is unremarkable. Pelvis: There is diverticulosis without evidence of diverticulitis now noted. Pelvic portion of the GI tract is otherwise unremarkable. There is no free fluid in the pelvis. There is no pelvic adenopathy. Degenerative and postsurgical changes are noted in the spine. No acute bony abnormality is noted. IMPRESSION: 1. Diverticulosis without definite changes of diverticulitis now noted. 2. Bilateral nephrolithiasis. 3. Hepatosplenomegaly. Electronically signed by: Latrell Mujica 05/02/2018 3:55 AM [employer]
[2018-05-02 05:17] VITALS: BP 135/77
== END 2018-05-02 05:17 | disposition home or self-care (01) ==
LOC: ER 02:54
DX: K57.30 Diverticulosis of large intestine without perforation or abscess without bleeding (principal); E11.9 Type 2 diabetes mellitus without complications; K75.81 Nonalcoholic steatohepatitis (NASH); R16.2 Hepatomegaly with splenomegaly, not elsewhere classified; R80.9 Proteinuria, unspecified; R74.0 Nonspecific elevation of levels of transaminase and lactic acid dehydrogenase [LDH]; N20.0 Calculus of kidney; R19.7 Diarrhea, unspecified; I10 Essential (primary) hypertension; Z79.82 Long term (current) use of aspirin; Z79.899 Other long term (current) drug therapy
CPT/HCPCS: 74176; 80053; 81001; 83690; 85025; J2270; J2405

== ENCOUNTER → 2019-01-31 | Outpatient (CLI) | payer OTHER ==
--- NOTE | 2019-01-31 15:11 | MRI ---
EXAM DESCRIPTION: Lumbar Spine w/o Contrast : Magnetic Resonance Imaging. CLINICAL HISTORY: M545.5 M54.15 COMPARISON: MRI scan of the lumbar spine without contrast 10/11/2017. TECHNIQUE: Multiplanar, multiple standard sequences, non contrast MRI, lumbar spine. FINDINGS: In keeping with the designation of the vertebra as on the prior study, a sacralized L5 segment present with rudimentary L5-S1 disc space and disc. The disc is identified on T2 axial series 501, image 3. No posterior bulge. Sacralization of the bilateral L5-S1 foramina and the canal at the L5-S1 level. No canal or foraminal stenosis. No bony encroachment on the canal. L4-L5: Disc desiccation and minimal disc space loss. Grade 1 retrolisthesis 3.5 mm. Posterior midline focal bulge or midline protrusion of the disc abutting the thecal sac with minimal inferior extension of the disc below the L5 superior endplate. Stable since the prior study. Minimal effacement of the left subarticular recess. Disc bulging into the left foramen abutting the exiting left L4 nerve. Moderate narrowing. Also seen on the prior study. Right foramen is patent. Minimal hypertrophic arthrosis of the bilateral facets. L3-L4: Posterior broad-based disc bulge abutting the thecal sac. Bilateral mild hypertrophic facet arthrosis and thickening of the flavum ligaments more left than right. AP canal diameter 13 mm. Bilateral mild foraminal narrowing. Stable since the prior study. L2-L3: Disc desiccation and disc space loss. Anterior minimal bulging. Schmorl's node in the superior L3 endplate. Moderate endplate reactive changes to the right of midline with disc spur complex encroaching on the foramen and abutting the exiting right L2 nerve. Moderate narrowing. On the foramen with mild narrowing of the left foramen. Posterior bilateral disc bulge, more on the right than the left encroaching on the thecal sac and effacing the right subarticular recess. AP canal diameter 7 mm to the right of midline. Degree of protrusion to the right of midline is less than on the prior study. L1-L2: Disc desiccation with anterior bulging and endplate ridging. Small Schmorl's nodes superior L2 endplate. Bilateral hypertrophic facet arthrosis and flavum ligament thickening with mild canal narrowing. Bilateral foramina are patent. No change from the prior study. T12-L1: Disc desiccation with Schmorl's node superior and inferior endplates. Posterior disc space loss. No bulging. Conus terminates just above the disc space. Posterior elements are unremarkable. Bilateral foramina are patent. Stable from the prior study. Mild L1-L3 levoscoliosis. Paravertebral soft tissues bilateral paraspinal muscle atrophy.. Cord normal signal and caliber. Normal marrow signal in the remaining vertebral bodies and the posterior elements. Vertebral bodies are not compressed at any level. IMPRESSION: 1. Transitional vertebra is a sacralized L5 segment with sacralization of the bilateral foramina and the canal and right transverse process. Narrowing of the canal and foramina but no stenosis. Rudimentary L5-S1 disc is degenerated but no bulging. No change from the prior study. 2. Grade 1 retrolisthesis L4-L5. Focal bulge or protrusion of the disc in the midline and minimal inferior extension narrowing the left subarticular recess. Grade 1 retrolisthesis. Moderate narrowing of the canal and the foramina. 3. Bilateral posterior herniation of the L2-L3 disc more on the right but less than on the prior study. Moderate canal stenosis to the right of midline with effacement of the right subarticular recess. Correlate for right L3 radiculopathy. Right side spondylosis encroaching on the foramen and abutting the exiting right L2 nerve. Stable since the prior study. Electronically signed by: Carlitos Eng MD 01/31/2019 3:09 PM CDT
== END ==
LOC: MRI 09:51
PROVIDERS: ATTEND General Practice
DX: M51.17 Intervertebral disc disorders with radiculopathy, lumbosacral region (principal); M48.061 Spinal stenosis, lumbar region without neurogenic claudication; M47.26 Other spondylosis with radiculopathy, lumbar region; Q76.49 Other congenital malformations of spine, not associated with scoliosis

== ENCOUNTER 2019-06-17 19:48 | Emergency (ER) | payer OTHER ==
[2019-06-17] MEDS ORDERED: ACETAMINOPHEN 325 MG TAB PO ONE (20:12)
[2019-06-17] MEDS ORDERED: SODIUM CHLORIDE 0.9% 1000ML 1,000 ML IVS ONE (20:12)
--- NOTE | 2019-06-17 20:15 | ED.PDOC ---
History of Present Illness - General Chief Complaint: Fever Stated Complaint: fever, body aches, chills Time Seen by Provider: 06/17/19 20:10 Additional Information: Patient is a 50-year-old male who presents to the ED with chief complaint of not feeling well. Patient was in his normal state of good health today but this evening at approximately 5 PM he began to feel ill. Patient complains of muscle aches and fevers to 101 and generalized weakness. Patient denies URI symptoms, cough, shortness of breath, chest pain, or abdominal pain. He has an upset stomach but he specifically denies abdominal pain, vomiting and diarrhea. Patient is otherwise asymptomatic. - History of Present Illness Allergies/Adverse Reactions: Allergies NO KNOWN ALLERGY Allergy (Verified 02/18/18 17:39) Home Medications: Ambulatory Orders Aspirin [Aspirin Adult Low Dose] 81 mg PO DAILY 02/18/18 Atenolol 100 mg PO DAILY 02/18/18 Canagliflozin [Invokana] 100 mg PO DAILY 02/18/18 Celecoxib [Celebrex] 200 mg PO DAILY 02/18/18 Hydrochlorothiazide 25 mg PO DAILY 02/18/18 Simvastatin 10 mg PO DAILY 02/18/18 Acetaminophen W/ Codeine [Acetaminophen/Codeine Javon] 1 - 2 tab PO Q8H PRN #15 tab 05/02/18 Ondansetron [Zofran Odt] 8 mg PO Q8H PRN #15 tab 05/02/18 Acetaminophen [Tylenol] 650 mg PO Q6H #50 tab 06/17/19 Oseltamivir Capsule [Tamiflu] 75 mg PO DAILY 5 Days #5 capsule 06/17/19 Review of Systems - Review of Systems Constitutional: States: fever, weakness. Denies: chills EENTM: States: no symptoms reported Respiratory: States: no symptoms reported. Denies: cough, short of breath Cardiology: States: no symptoms reported. Denies: chest pain, palpitations Genitourinary: States: no symptoms reported. Denies: dysuria Musculoskeletal: States: muscle pain. Denies: neck pain Skin: States: rash Neurological: States: no symptoms reported Endocrine: States: no symptoms reported All other Systems: Reviewed and Negative Past Medical History (General) - Patient Medical History Hx Seizures: No Hx Stroke: No Hx Dementia: No Hx Asthma: No Hx of COPD: No Hx Cardiac Disorders: No Hx Congestive Heart Failure: No Hx Pacemaker: No Hx Hypertension: Yes Hx Thyroid Disease: No Hx Diabetes: Yes Hx Gastroesophageal Reflux: No Hx Renal Disease: No Hx Cancer: No Hx of HIV: No Hx Hepatitis C: No Hx MRSA: No - Vaccination History Hx Tetanus, Diphtheria Vaccination: No Hx Influenza Vaccination: Yes Hx Pneumococcal Vaccination: No - Social History Hx Tobacco Use: No Hx Chewing Tobacco Use: No Hx Alcohol Use: No Hx Substance Use: No Hx Substance Use Treatment: No Hx Depression: No Hx Physical Abuse: No Hx Emotional Abuse: No Hx Suspected Abuse: No Family Medical History - Family History Father Family History: Unknown Hx Family;Other: unknown Mother Family History: Unknown Hx Family;Other: unknown Physical Exam - Physical Exam General Appearance: Alert, Comfortable, No apparent distress Ears, Nose, Throat: normal ENT inspection, normal pharynx Neck: non-tender, full range of motion, supple, normal inspection Respiratory: chest non-tender, lungs clear, normal breath sounds, no respiratory distress, no accessory muscle use Cardiovascular/Chest: normal peripheral pulses, regular rate, rhythm, no edema, no gallop, no JVD, no murmur Gastrointestinal/Abdominal: normal bowel sounds, non tender, soft, no organomegaly Back Exam: normal inspection, no CVA tenderness Extremity: normal range of motion, non-tender, normal inspection, no pedal edema Neurologic: carpenter repair II-XII nml as tested, no motor/sensory deficits, alert, normal mood/affect, oriented x 3 Skin Exam: normal color, warm/dry Progress - Progress Progress: 06/17/19 20:15 Differential diagnosis includes but is not limited to viral illness, influenza, electrolyte disorder, dehydration. 06/17/19 22:19 Patient feeling slightly better at this time. His heart rate is in the 50s and he appears well. Patient's workup is unremarkable except for his lactate which is slightly elevated at 2.8. His WBC is normal. Clinically I suspect influenza and I will discharge her with Tamiflu and Tylenol patient to rest and follow-up with his PCP in 2 days' time. I have very low clinical concern for sepsis at present. Vital signs stable, patient NAD and looks clinically well, and I be lieve is safe for discharge with outpatient follow-up. Follow-up instructions, discharge instructions and return to ED precautions discussed with patient. Patient voices understanding and willingness to comply with instructions. All laboratory and radiographic results have been discussed with the patient, and all questions answered. Patient is happy with plan. Departure - Departure Clinical Impression: Fever in adult Time of Disposition: 22:21 Disposition: Discharge to Home or Self Care Condition: Fair Departure Forms: ED Discharge - Pt. Copy, Patient Portal Self Enrollment Instructions: DI for Fever (Symptom) -- Adult, Flu, Adult (DC) Referrals: Rey Wiley MD [Primary Care Provider] - 1-5 Days Prescriptions: Acetaminophen [Tylenol] 650 mg PO Q6H #50 tab Oseltamivir Capsule [Tamiflu] 75 mg PO DAILY 5 Days #5 capsule Home Medications: Ambulatory Orders Aspirin [Aspirin Adult Low Dose] 81 mg PO DAILY 02/18/18 Atenolol 100 mg PO DAILY 02/18/18 Canagliflozin [Invokana] 100 mg PO DAILY 02/18/18 Celecoxib [Celebrex] 200 mg PO DAILY 02/18/18 Hydrochlorothiazide 25 mg PO DAILY 02/18/18 Simvastatin 10 mg PO DAILY 02/18/18 Acetaminophen W/ Codeine [Acetaminophen/Codeine Javon] 1 - 2 tab PO Q8H PRN #15 tab 05/02/18 Ondansetron [Zofran Odt] 8 mg PO Q8H PRN #15 tab 05/02/18 Acetaminophen [Tylenol] 650 mg PO Q6H #50 tab 06/17/19 Oseltamivir Capsule [Tamiflu] 75 mg PO DAILY 5 Days #5 capsule 06/17/19
[2019-06-17] MEDS ORDERED: OSELTAMIVIR 75 MG CAP ONE (22:30)
[2019-06-17] MEDS ORDERED: OSELTAMIVIR 75 MG CAP PO ONE (22:32)
[2019-06-17 22:35] VITALS: TEMP 98.8
[2019-06-17 22:38] VITALS: BP 131/82; O2SAT 96
== END 2019-06-17 22:38 | disposition home or self-care (01) ==
LOC: ER 19:48
DX: R50.9 Fever, unspecified (principal); I10 Essential (primary) hypertension; E11.9 Type 2 diabetes mellitus without complications; Z79.82 Long term (current) use of aspirin; Z79.899 Other long term (current) drug therapy
CPT/HCPCS: 36415; 80053; 83605; 85025; 87502; J7030

== ENCOUNTER 2019-06-18 17:23 | Inpatient (IN) | payer OTHER ==
[2019-06-18] MEDS ORDERED: KETOROLAC TROMETHAMINE INJ 30 MG/ML VIAL IV ONE (17:56)
[2019-06-18] MEDS ORDERED: SODIUM CHLORIDE 0.9% 1000ML 1,000 ML IVS ONE (17:56)
--- NOTE | 2019-06-18 17:59 | ED.PDOC ---
History of Present Illness - General Chief Complaint: Fever Stated Complaint: fever 103 at home, cough, congestion Time Seen by Provider: 06/18/19 17:48 - History of Present Illness Initial Comments: 58yo M presents with fever, DUKES, myalgia an congestion onset 2 days. The patient was seen here this past evening and dx with Flu empirically. He did have a flu swab and UA that were neg. The patient states he continued to have fever at home today and feels run down. He believes he is dehydrated. He did get the flu shot this year. No N, V, D. No other reported issues. Review of Systems - Review of Systems Constitutional: States: chills, fever, weakness - Generalized EENTM: States: nose congestion. Denies: throat pain Respiratory: States: cough. Denies: short of breath, wheezing Cardiology: Denies: chest pain, palpitations Gastrointestinal/Abdominal: Denies: abdominal pain, diarrhea, vomiting Genitourinary: Denies: dysuria, frequency Musculoskeletal: States: muscle pain. Denies: back pain, joint swelling, muscle stiffness, neck pain Skin: Denies: change in color, rash Neurological: Denies: numbness, paresthesia, weakness Endocrine: States: no symptoms reported Hematologic/Lymphatic: States: no symptoms reported Past Medical History (General) - Patient Medical History Hx Seizures: No Hx Stroke: No Hx Dementia: No Hx Asthma: No Hx of COPD: No Hx Cardiac Disorders: No Hx Congestive Heart Failure: No Hx Pacemaker: No Hx Hypertension: Yes Hx Thyroid Disease: No Hx Diabetes: Yes Hx Gastroesophageal Reflux: No Hx Renal Disease: No Hx Cancer: No Hx of HIV: No Hx Hepatitis C: No Hx MRSA: No - Vaccination History Hx Tetanus, Diphtheria Vaccination: Yes Hx Influenza Vaccination: Yes Hx Pneumococcal Vaccination: No Immunizations Up to Date: Yes - Social History Hx Tobacco Use: No Hx Chewing Tobacco Use: No Hx Alcohol Use: No Hx Substance Use: No Hx Substance Use Treatment: No Hx Depression: No Feels Threatened In Home Enviroment: No Feels Threatened In a Relationship: No Hx Physical Abuse: No Hx Emotional Abuse: No Hx Suspected Abuse: No - Activities of Daily Living Hospice Agency (if applicable):: None - Female History Patient is a Female of Child Bearing Age (10 -59 yrs old): No Family Medical History - Family History Father Family History: Unknown Hx Family;Other: unknown Mother Family History: Unknown Hx Family;Other: unknown Physical Exam - Physical Exam General Appearance: Alert, No apparent distress, Other - Fatigued appearance. Eye Exam: bilateral normal ENT Exam: pharynx normal, nasal congestion Neck: non-tender, full range of motion, supple Respiratory: lungs clear, normal breath sounds, no respiratory distress Cardiovascular/Chest: normal peripheral pulses, regular rate, rhythm Gastrointestinal/Abdominal: normal bowel sounds, non tender, soft Extremity: normal range of motion, non-tender Neurologic: no motor/sensory deficits, alert, normal mood/affect, oriented x 3 Skin Exam: normal color, warm/dry Lymphatic: no adenopathy Progress - Progress Progress: DDX: Influenza, pneumonia, lyte disorder, complication of diabetes, dehydration. 06/18/19 20:07 The patient continues to feel foggy and weak. He is alert and oriented. Neck supple. Symptoms are suggestive of influenza likely exacerbated by his hyperglyemia and relative dehydration. Discussed case with Juanis Luna. Will bring the patient into the hospital for ongoing care. Pt updated and is comfortable with plan. [facility] #[id number] 06/18/19 20:10 Last Vital Signs Temp 98.7 F 06/18/19 17:33 Pulse 89 06/18/19 19:11 Resp 18 06/18/19 19:11 BP 149/74 06/18/19 19:11 Pulse Ox 95 06/18/19 19:11 - Results/Orders Results/Orders: Laboratory Results - last 24 hr 06/18/19 06/18/19 18:05 18:05 WBC 6.9 RBC 4.87 Hgb 14.8 Hct 44.9 MCV 92.1 MCH 30.4 MCHC 33.0 RDW 14.6 H Plt Count 81 L MPV 10.4 Absolute Neuts (auto) 5.40 Absolute Lymphs (auto) 0.50 L Absolute Monos (auto) 0.90 H Absolute Eos (auto) 0.10 Absolute Basos (auto) 0.00 Neutrophils % 78.2 H Lymphocytes % 7.5 L Monocytes % 12.6 H Eosinophils % 1.1 Basophils % 0.6 Sodium 128 L Potassium 3.6 Chloride 92 L Carbon Dioxide 25 Anion Gap 14.6 BUN 11 Creatinine 0.88 BUN/Creatinine Ratio 12.5 Random Glucose 389 H D Serum Osmolality 272.6 L Calcium 8.6 - EKG/XRAY/CT XRAY: chest - No acute findings. See formal read. Departure - Departure Clinical Impression: Flu-like symptoms, Hyperglycemia, Dehydration Fever Qualifiers: Fever type: unspecified Qualified Code(s): R50.9 - Fever, unspecified Time of Disposition: 20:06 Disposition: Admit Patient Home Medications: Ambulatory Orders Aspirin [Aspirin Adult Low Dose] 81 mg PO DAILY 02/18/18 Atenolol 100 mg PO DAILY 02/18/18 Canagliflozin [Invokana] 100 mg PO DAILY 02/18/18 Celecoxib [Celebrex] 200 mg PO DAILY 02/18/18 Hydrochlorothiazide 25 mg PO DAILY 02/18/18 Simvastatin 10 mg PO DAILY 02/18/18 Acetaminophen W/ Codeine [Acetaminophen/Codeine Javon] 1 - 2 tab PO Q8H PRN #15 tab 05/02/18 Ondansetron [Zofran Odt] 8 mg PO Q8H PRN #15 tab 05/02/18 Acetaminophen [Tylenol] 650 mg PO Q6H #50 tab 06/17/19 Oseltamivir Capsule [Tamiflu] 75 mg PO DAILY 5 Days #5 capsule 06/17/19 Decision To Admit - Decistion To Admit Decision to Admit Reason: Admit from ER Decision to Admit Date: 06/18/19 Decision to Admit Time: 20:05
--- NOTE | 2019-06-18 18:24 | RAD ---
EXAM DESCRIPTION: XR Chest, 1 View CLINICAL HISTORY: 58 years Male Cough, fever TECHNIQUE: One view of the chest. COMPARISON: No prior exams provided for comparison. FINDINGS: Increased bronchovascular markings and cardiac size may be related to low lung volumes. There is no focal consolidation, effusion, or pneumothorax. Elevation of the right hemidiaphragm. Posterior fusion hardware in the lower thoracic spine. IMPRESSION: No acute cardiopulmonary abnormalities. Low lung volumes. Electronically signed by: Yahaira Faith MD 06/18/2019 6:22 PM [facility] [[email or web address]]
--- NOTE | 2019-06-18 21:17 | HP ---
SUPERVISING PHYSICIAN: João Crawford MD CHIEF COMPLAINT: Flu-like symptoms. HISTORY OF PRESENT ILLNESS: This is a 58-year-old male patient who presented to the Emergency Room for the second time in 24 hours with flu-like symptoms. He has had a fever up to 103.3 as well as a headache, muscle aches and pains with nasal congestion. His initial flu swab at his prior ER visit was negative for flu A and B. He had a urinalysis that was also negative. He was unable to get his Tamiflu and his symptoms worsened, so he came to the hospital again for treatment due to what he felt was dehydration. In the Emergency Room, his initial vital signs were temperature 98.7, heart rate 81, blood pressure 172/89, respiratory rate 18, O2 saturation 94%. CBC was basically unremarkable although he did have a mild left shift on his differential. His sodium was low at 128 with chloride 92. Glucose was 389. Chest x-ray was obtained and showed no acute cardiopulmonary abnormalities with low lung volumes. He was given some fluids, given some Toradol as well as several of his blood pressure medications and due to his symptoms as well as dehydration, I was called for admission to the hospital. PAST MEDICAL HISTORY: 1. Diabetes mellitus, type 2. 2. Chronic low back with multiple steroids injections within the last 6 months. 3. Obstructive sleep apnea, but he says he has not used CPAP in years and he feels he does not have it. 4. Hypertension. 6. Hyperlipidemia. 7. Hypothyroidism. PAST SURGICAL HISTORY: 1. Back surgery times 2. 2. Appendectomy. OUTPATIENT MEDICATIONS: Per the EMR and awaiting verification. ALLERGIES: NO KNOWN DRUG ALLERGIES. FAMILY HISTORY: Positive for Alzheimer's, myocardial infarction, chronic obstructive pulmonary disease and lung cancer. SOCIAL HISTORY: He lives in [place]. He drinks alcohol on a social basis. He denies any tobacco use. He does take edible marijuana maybe once a month. REVIEW OF SYSTEMS: GENERAL: Positive for fever, chills. Negative for weight changes. HEENT: Negative for sinus symptoms, ear pain, vision changes or sore throat. RESPIRATORY: Positive for cough, but negative for wheezing or shortness of breath CARDIAC: Negative for chest pain, palpitations or tachycardia. GASTROINTESTINAL: Positive for nausea, but no vomiting. Negative for constipation or abdominal pain. GENITOURINARY: Negative for hematuria, dysuria or polyuria. MUSCULOSKELETAL: Positive for myalgias and chronic back pain. Negative for arthralgias. INTEGUMENT: Positive for diaphoresis, but negative for lesions or rashes. NEUROLOGIC: Positive for headaches and weakness. Negative for seizures. PHYSICAL EXAMINATION: VITAL SIGNS: Temperature 102.9, heart rate 118, blood pressure 138/88, respiratory rate 18, O2 saturation 94% on room air. GENERAL: This is a 58-year-old male patient who is lying in his hospital bed. He looks to be moderately sick. HEENT: Normocephalic, atraumatic. Pupils are equal and reactive. Oropharynx is clear. NECK: Supple without mass. There is no jugular venous distention. RESPIRATORY: Essentially clear to auscultation bilaterally. CHEST: There is equal rise and fall of the chest with inspiration and expiration. CARDIOVASCULAR: Regular rate and rhythm. At times, he is tachycardic. GASTROINTESTINAL: Abdomen is soft, nondistended, nontender. Bowel sounds are positive. GENITOURINARY: Deferred. EXTREMITIES: No cyanosis, clubbing or edema. SKIN: He is rather diaphoretic and warm. LABORATORY: Labs and films are as per history of present illness. IMPRESSION: 1. Influenza, non-A, non-B. 2. Dehydration secondary to elevated temperature and flu. 3. Hyperglycemia, most likely secondary to infectious process. 4. Diabetes mellitus, type 2. 5. Hypertension. 6. Hypothyroidism. PLAN: The patient will be placed in observation. We will restart his home medications as soon as they are verified. I have put him on Lovenox for DVT prophylaxis. He has some antiemetics as well as Restoril for sleep. He will need fluids overnight. We may need to do another bolus depending on his temperature and his clinical symptoms. I have given him ibuprofen and Tylenol for his fever. I will monitor his cultures. I did start him back on his Tamiflu. I repeated his lab in the morning. He will have good pulmonary hygiene. We will continue to monitor the patient closely and follow as needed. #[id number] [facility]
[2019-06-18] MEDS ORDERED: ONDANSETRON INJ 4 MG/2 ML VIAL IV PRN (21:39)
[2019-06-18] MEDS ORDERED: ALUMINUM & MAGNESIUM HYDROXIDE 30 ML UD PO PRN (21:39)
[2019-06-18] MEDS ORDERED: SODIUM CHLORIDE 0.9% (FLUSH) 10 ML SYG IV PRN (21:39)
[2019-06-18] MEDS ORDERED: GLUCAGON INJ 1 MG VIAL SUBCU PRN (21:44)
[2019-06-18] MEDS ORDERED: DEXTROSE 50% 25 GM/50 ML SYG IV PRN (21:44)
[2019-06-18] MEDS: ACETAMINOPHEN 325 MG TAB PO PRN (22:42)
[2019-06-18] MEDS: IV SET AND CAP CHANGE INJ INJ SCH (23:37)
[2019-06-18] MEDS: OSELTAMIVIR 75 MG CAP PO SCH (23:38)
[2019-06-19] MEDS: PROMETHAZINE W/CODEINE SYR 5 ML UD PO PRN ×3 (00:01→16:31)
[2019-06-19] MEDS: KCL 20 MEQ/NS 1,000 ML IVS PRN ×3 (00:02→21:14)
[2019-06-19] MEDS: IBUPROFEN 400 MG TAB PO PRN ×2 (00:16→16:09)
[2019-06-19] MEDS: INSULIN LISPRO 100 UNITS/ML PEN SUBCU SCH ×5 (00:49→21:24)
[2019-06-19] MEDS: PANTOPRAZOLE SODIUM IV 40 MG VIAL IV SCH (06:22)
[2019-06-19] MEDS ORDERED: amLODIPine BESYLATE 5 MG TAB ONE (07:33)
[2019-06-19] MEDS ORDERED: ATENOLOL 25 MG TAB ONE (07:33)
[2019-06-19] MEDS ORDERED: CELECOXIB 100 MG CAP ONE (07:33)
[2019-06-19] MEDS ORDERED: LEVOTHYROXINE SODIUM 0.025 MG TAB ONE (07:33)
[2019-06-19] MEDS: SIMVASTATIN 10 MG TAB PO SCH (08:26)
[2019-06-19] MEDS: ASPIRIN (CHEWABLE) 81 MG TAB PO SCH (08:26)
[2019-06-19] MEDS: CANAGLIFLOZIN 100 MG PO SCH (08:27)
[2019-06-19] MEDS: OSELTAMIVIR 75 MG CAP PO SCH ×2 (08:27→20:24)
[2019-06-19] MEDS: hydroCHLOROthiazide 25 MG TAB PO SCH (08:27)
[2019-06-19] MEDS: SODIUM CHLORIDE 0.9% (FLUSH) 10 ML SYG IV SCH ×2 (08:28→20:24)
[2019-06-19] MEDS ORDERED: NON-FORMULARY MEDICATION 1 EA MIS (Levothyroxine Sodium [Levothyroxine Sodium] 50 MCG) PO SCH (09:00)
[2019-06-19] MEDS ORDERED: NON-FORMULARY MEDICATION 1 EA MIS (Amlodipine Besylate [Amlodipine Besylate] 10 MG) PO SCH (09:00)
[2019-06-19] MEDS ORDERED: NON-FORMULARY MEDICATION 1 EA MIS (Atenolol [Atenolol] 100 MG) PO SCH (09:00)
[2019-06-19] MEDS ORDERED: NON-FORMULARY MEDICATION 1 EA MIS (Celecoxib [Celebrex] 200 MG) PO SCH (09:00)
[2019-06-19] MEDS ORDERED: SODIUM CHLORIDE 0.9% 1000ML 1,000 ML IVS ONE (09:31)
[2019-06-19] MEDS ORDERED: OXYMETAZOLINE NASAL SPRAY 15 ML BTTL BNAS PRN (09:31)
[2019-06-19] MEDS: ACETAMINOPHEN 325 MG TAB PO PRN ×2 (09:56→18:12)
[2019-06-19] MEDS: ALBUTEROL SULFATE 2.5 MG/3 ML VIAL NEB SCH ×4 (10:06→20:39)
--- NOTE | 2019-06-19 10:53 | PN ---
SUPERVISING PHYSICIAN: João Crawford MD DATE: 06/19/19 SUBJECTIVE: The patient is lying in bed. He still has complaints of chills and fever. He has not had any nausea or vomiting, but he does have a lot of muscle aches and pains. He said he still feels quite dehydrated. OBJECTIVE: VITAL SIGNS: T-max 24 hours 102.9. Heart rate 104. Blood pressure 165/80. Respiratory rate 18. O2 saturation 97% on room air. HEENT: Oral mucous membranes are dry. RESPIRATORY: Essentially clear to auscultation bilaterally. CARDIAC: Regular rate and rhythm. GASTROINTESTINAL: Abdomen is soft, nondistended, nontender. Bowel sounds are positive. INTEGUMENT: He has poor skin turgor and he is slightly clammy. NEUROLOGIC: Awake, alert and oriented times three. LABORATORY: CBC is basically unremarkable. Sodium still low at 130, potassium 3.6, chloride 95, carbon dioxide 25, anion gap 13.6. Blood sugar 262 and has been running in the upper 200s. Serum osmolality 271.7. Total bilirubin 1.5. Influenza type A and B per PCR are both negative. Preliminary blood cultures are negative to date. All other labs and films have been reviewed via the EMR. ASSESSMENT: 1. Influenza, non-A, non-B. 2. Dehydration secondary to elevated temperature and flu. 3. Hyperglycemia, most likely secondary to infectious process. 4. Diabetes mellitus, type 2. 5. Hypertension. 6. Hypothyroidism. PLAN: We will continue present supportive care. His home medications have been restarted. I am going to give him another bolus of fluids. His sliding scale insulin will also be adjusted. Hopefully we can get his blood sugars under control. I have checked his lab for in the morning. He will continue with his IV fluids after the bolus. Hopefully he can be discharged tomorrow with his Tamiflu. We will continue to monitor the patient closely and follow as needed. #[id number] [facility]
[2019-06-19] MEDS ORDERED: SODIUM CHLORIDE 0.9% 500ML 500 ML ONE (19:30)
[2019-06-19] MEDS ORDERED: VANCOMYCIN HCL INJ 2,000 MG in SODIUM CHLORIDE 0.9% 500ML 500 ML IVPB ONE (19:30)
[2019-06-19] MEDS ORDERED: VANCOMYCIN HCL INJ 1,000 MG VIAL IVPB ONE (19:31)
[2019-06-19] MEDS: ENOXAPARIN SODIUM 40 MG/0.4 ML SYG SUBCU SCH (20:24)
[2019-06-19] MEDS: TEMAZEPAM 15 MG CAP PO PRN (22:02)
[2019-06-20] MEDS: PROMETHAZINE W/CODEINE SYR 5 ML UD PO PRN ×4 (00:34→20:16)
[2019-06-20] MEDS: IBUPROFEN 400 MG TAB PO PRN (00:34)
[2019-06-20] MEDS: ALBUTEROL SULFATE 2.5 MG/3 ML VIAL NEB PRN (00:42)
[2019-06-20] MEDS: LEVOTHYROXINE SODIUM 0.025 MG TAB PO SCH (06:00)
[2019-06-20] MEDS: PANTOPRAZOLE SODIUM IV 40 MG VIAL IV SCH (06:00)
--- NOTE | 2019-06-20 06:39 | RAD ---
CLINICAL HISTORY: fever COMPARISON: None. TECHNIQUE: XR ABDOMEN 2 VIEWS SUPINE ERECT 06/20/2019 5:00 AM BOW REHAIRER FINDINGS: Bowel gas pattern is nonspecific. There are no abnormal radiopaque foreign bodies or abnormal calcifications. Osseous structures are grossly unremarkable. IMPRESSION: Lower thoracic fusion was performed. No bowel obstruction. Electronically signed by: Jefferson Cheek MD 06/20/2019 6:38 AM BOW REHAIRER
--- NOTE | 2019-06-20 06:40 | RAD ---
CLINICAL HISTORY: fever COMPARISON: 06/18/2019. TECHNIQUE: XR CHEST 2 VIEWS 06/20/2019 5:00 AM GLOST KILN OPERATOR FINDINGS: Cardiac silhouette is normal in size. Lungs are clear without consolidation, atelectasis, mass or edema. There is no pleural effusion. There is no pneumothorax. Lower thoracic fusion was performed. IMPRESSION: Clear lungs. Electronically signed by: Jefferson Cheek MD 06/20/2019 6:38 AM GLOST KILN OPERATOR
[2019-06-20] MEDS: INSULIN LISPRO 100 UNITS/ML PEN SUBCU SCH ×4 (07:28→21:14)
[2019-06-20] MEDS ORDERED: VANCOMYCIN PER PHARMACY IVPB SCH (08:00)
[2019-06-20] MEDS: ALBUTEROL SULFATE 2.5 MG/3 ML VIAL NEB SCH ×4 (08:17→20:02)
[2019-06-20] MEDS: OSELTAMIVIR 75 MG CAP PO SCH ×2 (08:25→20:21)
[2019-06-20] MEDS: ASPIRIN (CHEWABLE) 81 MG TAB PO SCH (08:25)
[2019-06-20] MEDS: amLODIPine BESYLATE 5 MG TAB PO SCH (08:25)
[2019-06-20] MEDS: CELECOXIB 100 MG CAP PO SCH (08:25)
[2019-06-20] MEDS: SIMVASTATIN 10 MG TAB PO SCH (08:25)
[2019-06-20] MEDS: ATENOLOL 25 MG TAB PO SCH (08:26)
[2019-06-20] MEDS: CANAGLIFLOZIN 100 MG PO SCH (08:26)
[2019-06-20] MEDS: SODIUM CHLORIDE 0.9% (FLUSH) 10 ML SYG IV SCH ×2 (08:26→20:21)
[2019-06-20] MEDS: NON-FORMULARY MEDICATION 1 EA MIS (Liraglutide [Victoza] 18 MG) SC SCH (08:26)
[2019-06-20] MEDS: hydroCHLOROthiazide 25 MG TAB PO SCH (08:26)
[2019-06-20] MEDS ORDERED: SODIUM CHLORIDE 0.9% 500ML 500 ML ONE ×2 (08:43→20:08)
[2019-06-20] MEDS ORDERED: VANCOMYCIN HCL INJ 1,000 MG VIAL IVPB ONE ×2 (08:44→20:10)
[2019-06-20] MEDS: VANCOMYCIN HCL INJ 2,000 MG in SODIUM CHLORIDE 0.9% 500ML 500 ML IVPB SCH ×2 (08:50→21:14)
--- NOTE | 2019-06-20 11:11 | US ---
EXAM DESCRIPTION: Abdomen,Complete CLINICAL HISTORY: elev bili; pos blood cx COMPARISON: None Available. TECHNIQUE: Complete abdominal ultrasound FINDINGS: Visualized portions of the pancreas are unremarkable. No peripancreatic fluid. Bowel gas obscures some areas. Aorta is not seen due to overlying bowel gas. Normal appearance of the inferior vena cava. Liver parenchyma is course in texture with increased echogenicity. No liver mass or intrahepatic bile duct dilatation. Some images are consistent with liver surface irregularity of cirrhosis. Correlate with biopsy results. Liver length of 21.4 cm is increased. Normal appearance of hepatic veins and portal vein. Gallbladder appears normal with no intraluminal stones. No gallbladder wall thickening. Common bile duct is normal in caliber measuring 3.2 mm. The right kidney measures 11.4 cm in length. Normal renal cortical echogenicity. The renal cortical thickness appears normal. No right renal mass, shadowing stone or cyst. There is no hydronephrosis. Spleen is enlarged measuring 22.6 cm in length. No focal splenic lesion. The left kidney measures 12.2 cm in length. Normal renal cortical echogenicity. Cortical thinning is present. Correlate with renal function tests. No left renal mass or cyst. Previous CT showed large stone in the lower calyx of the left kidney 1.2 cm. This is not depicted on the sono images. There is no hydronephrosis. IMPRESSION: Enlarged hyperechoic liver with coarse texture and subtle liver surface irregularity consistent with cirrhosis. Splenomegaly. Electronically signed by: Anup Zaragoza MD 06/20/2019 11:09 AM REGIONAL PROPERTY MANAGER
[2019-06-20] MEDS ORDERED: MAGNESIUM HYDROXIDE 30 ML UD PO ONE (11:56)
[2019-06-20] MEDS ORDERED: POLYETHYLENE GLYCOL 3350 17 GM PCKT PO ONE (11:56)
[2019-06-20] MEDS ORDERED: SODIUM CHL 0.9% 50ML MIN-BAG+ 50 ML IVPB ONE ×2 (12:20→20:08)
[2019-06-20] MEDS ORDERED: cefTRIAXone SODIUM 1 GM VIAL ONE ×2 (12:20→20:09)
[2019-06-20] MEDS ORDERED: INSULIN DETEMIR 100 UNITS/ML PEN SUBCU ONE (12:45)
[2019-06-20] MEDS ORDERED: PROMETHAZINE W/CODEINE SYR 5 ML UD PO ONE (13:06)
[2019-06-20] MEDS: cefTRIAXone SODIUM 1 GM in SODIUM CHL 0.9% 50ML MIN-BAG+ 50 ML IVPB SCH (13:20)
[2019-06-20] MEDS: KCL 20 MEQ/NS 1,000 ML IVS PRN (13:23)
[2019-06-20] MEDS: ACETAMINOPHEN 325 MG TAB PO PRN (13:40)
[2019-06-20] MEDS ORDERED: ALPRAZolam 0.25 MG TAB PO ONE (14:25)
[2019-06-20] MEDS: HYDROcodone 10MG/APAP 325MG 1 EA TAB PO PRN (14:35)
--- NOTE | 2019-06-20 15:09 | CT ---
EXAM DESCRIPTION: Chest w/Contrast (accession [id number]), Abdomen/Pelvis w/Contrast (accession [id number]) CLINICAL HISTORY: FUO possible pneumonia abnormal abdominal ultrasound COMPARISON: Ultrasound 01/18/2019. CT abdomen pelvis May 02, 2018 TECHNIQUE: Postcontrast CT images of the chest are obtained. Pre and postcontrast CT images of the abdomen are obtained This exam was performed according to our departmental dose-optimization program, which includes automated exposure control, adjustment of the mA and/or kV according to patient size and/or use of iterative reconstruction technique . FINDINGS: CT chest: The heart is enlarged. No coronary artery calcifications. Great vessels are unremarkable. No pathologically enlarged mediastinal or hilar lymphadenopathy. Small pleural effusions are seen in the dependent portion of the chest bilaterally. Lungs are hypoaerated. Patchy areas of groundglass attenuation and alveolar infiltrate are seen in the lower lobes left greater than right. No aggressive bony lesions. Pedicle screw and vertical oriented fixation from T6 T11 is seen with partial laminectomy at T7-[address] abdomen pelvis: Liver is enlarged. Right lobe measures 19.6 cm. Heterogeneous attenuation of the liver seen with diffuse nodularity of the liver capsule. Appears similar to previous. No enhancing hepatic mass. Spleen is enlarged measuring 18 cm craniocaudal. Pancreas, adrenal glands are unremarkable. Gallbladder wall thickening and indistinctness along the wall the gallbladder is seen. Moderate vascular calcifications. 2 mm nonobstructing calcification in an anterior midpole calyx of the right kidney. Mild malrotation of the left kidney. Several nonobstructing calcifications are seen in the left kidney with largest lower pole measuring maximum 1.2 cm similar to previous. Other smaller nonobstructing calculi in both kidneys seen on previous exam are not appreciated on today's exam. No ureteral calcification or obstruction. Urinary bladder is contracted. Prostate normal size. The appendix is not identified. Stomach is contracted and not well evaluated. Mild air and fluid-filled dilated loops of proximal small bowel are seen without transition zone. Mild to moderate scattered diverticuli of the mostly descending to sigmoid colon are seen without associated inflammatory changes or fluid collections. Small amount of ascites in the lower pelvis. No pathologically enlarged abdominal or retroperitoneal lymphadenopathy. Moderate spondylitic changes of the spine are seen. Degenerative changes of the hips are seen bilaterally. IMPRESSION: Small bilateral pleural effusions in the dependent portions of the chest. Bilateral posterior lower lobe pulmonary infiltrate suggesting pneumonia versus aspiration. Continued follow-up until resolution to exclude neoplastic process. Hepatomegaly with nodular appearance to the liver capsule and enlarged left lobe suggests cirrhosis versus other diffuse hepatic abnormality. Splenomegaly again seen. Small amount of ascites in the pelvis could be related to portal hypertension. Gallbladder wall thickening is seen as seen on ultrasound from today. No cholelithiasis on ultrasound. Gallbladder wall thickening can be seen with multiple etiologies including hepatic disease, ascites, pleural effusions. Nonobstructing bilateral nephrolithiasis. Colon diverticulosis is seen without CT evidence of diverticulitis. Other findings as described above. Electronically signed by: Anshul Tse MD 06/20/2019 3:07 PM [facility]
[2019-06-20] MEDS ORDERED: SODIUM CHLORIDE 0.9% 250ML 250 ML ONE (15:38)
[2019-06-20] MEDS ORDERED: AZITHROMYCIN IV 500 MG VIAL IVPB ONE (15:38)
[2019-06-20] MEDS: AZITHROMYCIN IV 500 MG in SODIUM CHLORIDE 0.9% 250ML 250 ML IVPB SCH (15:43)
--- NOTE | 2019-06-20 16:56 | CT ---
EXAM DESCRIPTION: Lumbar Spine CLINICAL HISTORY: 58 years, Male, FUO, L spine tenderness L1/L2, s/p inj 05/27 COMPARISON: None TECHNIQUE: Lumbar CT with thin-section axial imaging with reconstructed MPR images reviewed as well. FINDINGS: Coronal reformatted images are negative for scoliosis. Facet irregularities on the left at L3 and L4 consistent with old facet fractures partially healed. Abnormal degenerative apposition of the spinous processes. Sagittal reformatted images show vacuum disc phenomenon from disc degeneration at the L to three level. L5 is transitional. Posterior calcified disc/osteophyte complexes at L2-3, L3-4 and L4-5 level of moderate severity. Mild to moderate neural foraminal narrowing bilaterally at these levels. Slight wedging anteriorly at L1 with superior endplate Schmorl's node. Prominent anterior spurring is seen at multiple levels. No bony destructive lesion. No fracture. Facet degenerative changes are present bilaterally. Axial images show moderate posterior annular bulge at L1 to without spinal stenosis. Moderately severe L2-3 diffuse annular bulge with mild spinal stenosis. AP diameter of the spinal canal is 1 cm. Moderate facet hypertrophy and ligamentum flavum thickening. L3-4 moderate diffuse posterior annular bulge without significant spinal stenosis. Moderate facet hypertrophy. L4-5 moderate diffuse posterior annular bulge with marginal osteophyte formation. No significant spinal stenosis. Bilateral facet hypertrophic spurring with moderate left neural foraminal narrowing. L5-S1 level is transitional with no posterior annular bulge or herniation. Mild right neural foraminal narrowing. No significant facet spurring. Upper sacrum appears intact with no fracture. Marked degenerative spurring at the SI joints bilaterally. IMPRESSION: Multilevel chronic appearing facet and disc degeneration with moderate spinal stenosis at L2-3 has described. This exam was performed according to our departmental dose-optimization program, which includes automated exposure control, adjustment of the mA and/or kV according to patient size and/or use of iterative reconstruction technique. Electronically signed by: Anup Zaragoza MD 06/20/2019 4:55 PM [email or web address]
[2019-06-20] MEDS: ENOXAPARIN SODIUM 40 MG/0.4 ML SYG SUBCU SCH (20:21)
[2019-06-20] MEDS: TEMAZEPAM 15 MG CAP PO PRN (21:19)
[2019-06-21] MEDS: ALBUTEROL SULFATE 2.5 MG/3 ML VIAL NEB PRN ×2 (00:02→03:58)
[2019-06-21] MEDS: cefTRIAXone SODIUM 1 GM in SODIUM CHL 0.9% 50ML MIN-BAG+ 50 ML IVPB SCH ×3 (00:15→14:55)
[2019-06-21] MEDS: KCL 20 MEQ/NS 1,000 ML IVS PRN (02:28)
[2019-06-21] MEDS: PANTOPRAZOLE SODIUM IV 40 MG VIAL IV SCH (06:14)
[2019-06-21] MEDS: LEVOTHYROXINE SODIUM 0.025 MG TAB PO SCH (06:14)
[2019-06-21] MEDS: INSULIN LISPRO 100 UNITS/ML PEN SUBCU SCH ×5 (07:31→21:28)
[2019-06-21] MEDS: ALBUTEROL SULFATE 2.5 MG/3 ML VIAL NEB SCH ×2 (09:16→16:07)
[2019-06-21] MEDS: CELECOXIB 100 MG CAP PO SCH (09:53)
[2019-06-21] MEDS: ASPIRIN (CHEWABLE) 81 MG TAB PO SCH (09:53)
[2019-06-21] MEDS: CANAGLIFLOZIN 100 MG PO SCH (09:54)
--- NOTE | 2019-06-21 10:39 | PN ---
SUPERVISING PHYSICIAN: João Crawford MD DATE: 06/20/19 SUBJECTIVE: The patient is still having chills and fever. He has had a little bit of pain in his back and now says he is having a little bit of pain in his left quadrant of his abdomen. He is not complaining of any chest pain but again has some shortness of breath and a significant cough. OBJECTIVE: VITAL SIGNS: T-max 101.5. Heart rate 94. Blood pressure 167/91. Respiratory rate 20. O2 saturation 96% on 3 liter nasal cannula. Weight 128.7 kg. GENERAL: The patient appears to be in no acute distress. He does look unwell. Still a little dry. CHEST: Lung sounds are diminished with some rhonchi heard bilaterally, more prone on the left than the right. CARDIAC: Regular rate and rhythm. ABDOMEN: Soft with some tenderness noted over the left upper and lower quadrant but no rebound tenderness or point tenderness. Bowel sounds are present. BACK: He does have some tenderness to his lumbar spine but no obvious areas of abscess, drainage or erythema. The tenderness seems to be located more over the injection site which is around L1-L2 but again, there is no obvious signs of infection on exam. CVA tenderness is negative. EXTREMITIES: Without edema. NEUROLOGIC: Alert and oriented times three. LABORATORY: White count 6.300 with hemoglobin 14.1 and hematocrit 43.3. Platelet count is at 64,000. His differential does show a left shift with no reported bands. Chemistries show a sodium 129 but corrected for a 257 glucose to 132. Potassium 4.1, magnesium low at 1.8, creatinine 0.94. Amylase and lipase both normal. Blood sugars remained elevated between 210 and 280. Urine culture pending. Blood cultures, 2 bottles remain positive with culture and sensitivity pending. RADIOLOGY: Abdominal/ pelvic CT, chest CT and lumbar CT all with contrast was done. Abdomen and pelvis showed bilateral pleural effusions in the dependent portions of the chest. There is hepatomegaly with nodular appearance to the liver capsule with enlarged liver to suggest cirrhosis versus other diffuse hepatic abnormalities, splenomegaly was also noted. Small amount of ascites in the pelvis. Gallbladder was showing some wall thickening that was also seen on ultrasound but no cholelithiasis on ultrasound. There was nonobstructive bilateral nephrolithiasis. There was note of chronic diverticulosis without any CT evidence of diverticulitis. CT of the chest showed per radiology interpretation bilateral pleural effusions in the dependent portion of the chest with bilateral posterior lower lobe pulmonary infiltrate suggesting pneumonia versus aspiration. Please see that report for details. Abdominal ultrasound - please see that report for details correlated through the abdomen CT. Lumbar spine CT per radiology interpretation was noted multilevel chronic appearing facet and disc degeneration with moderate spinal stenosis on L2-L3. Please see that report for details. ASSESSMENT: 1. Influenza, non-A, non-B with bilateral pneumonia as noted on CT with continued fever with concerns for gram positive bacteremia. 2. Gram positive bacteremia, etiology at this point is uncertain, although possibly pneumonia versus urinary tract infection. 3. Urinary tract infection awaiting culture results. 4. Dehydration secondary to #1 requiring fluids, showing improvement.. 5. Hyperglycemia complicated by infectious process from both bilateral pneumonia and urinary tract infection. 6. Enlarged liver and spleen, probably due to nonalcoholic steatosis, although needs followup in outpatient setting for further evaluation. 7. Thrombocytopenia in the setting of a splenomegaly, continue to observe, with no signs of bleeding. 8. Hypertension. 9. Hypothyroidism. PLAN: The patient has been changed to full admission for joão positive cocci bacteremia. I will cover him with vancomycin and Rocephin. If he continues to show a fever we may need to add Levaquin. There is no obvious pyelonephritis noted on his CT findings and he has not had any symptoms of CVA tenderness. At this point, we will continue with current antibiotic coverage and closely observe. We will await his blood culture results to further target antibiotic therapy. He does have hardware in his back in the thoracic area. Will need to touch base with Dr. Anna on her recommendations once we have cultures back. If he still runs a fever, I will go ahead and touch base with her tomorrow to make sure we have good empiric coverage while we are waiting on culture results. We will continue with fluids as needed. Will hold off on DVT prophylaxis given his thrombocytopenia. I have increased his coverage of glucose with some Levemir. We may need to add some additional ac coverage as well. We will reevaluate in the morning with laboratory studies. Until we can transition him to outpatient management, we will continue to monitor and treat as needed. #[id number] [facility]
[2019-06-21] MEDS ORDERED: SODIUM CHLORIDE 0.9% (FLUSH) 10 ML SYG IV ONE (11:37)
[2019-06-21] MEDS ORDERED: SODIUM CHLORIDE 0.9% 500ML 500 ML ONE ×3 (12:05→20:06)
[2019-06-21] MEDS ORDERED: VANCOMYCIN HCL INJ 1,000 MG VIAL IVPB ONE ×3 (12:06→20:06)
[2019-06-21] MEDS: INSULIN DETEMIR 100 UNITS/ML PEN SUBCU SCH ×2 (12:10→21:29)
[2019-06-21] MEDS: VANCOMYCIN HCL INJ 2,000 MG in SODIUM CHLORIDE 0.9% 500ML 500 ML IVPB SCH ×2 (12:14→12:29)
[2019-06-21] MEDS: ATENOLOL 25 MG TAB PO SCH (12:52)
[2019-06-21] MEDS: amLODIPine BESYLATE 5 MG TAB PO SCH (12:52)
[2019-06-21] MEDS: OSELTAMIVIR 75 MG CAP PO SCH ×2 (12:52→20:32)
[2019-06-21] MEDS: SODIUM CHLORIDE 0.9% (FLUSH) 10 ML SYG IV SCH ×2 (12:54→20:32)
[2019-06-21] MEDS: SIMVASTATIN 10 MG TAB PO SCH (12:57)
[2019-06-21] MEDS: POLYETHYLENE GLYCOL 3350 17 GM PCKT PO SCH (13:03)
[2019-06-21] MEDS: hydroCHLOROthiazide 25 MG TAB PO SCH (13:03)
[2019-06-21] MEDS: NON-FORMULARY MEDICATION 1 EA MIS (Liraglutide [Victoza] 18 MG) SC SCH (13:14)
[2019-06-21] MEDS ORDERED: METOPROLOL TARTRATE INJ 5 MG/5 ML VIAL IV ONE (13:15)
[2019-06-21] MEDS ORDERED: FUROSEMIDE INJ 40 MG/4 ML VIAL IV ONE ×2 (13:32→21:37)
[2019-06-21] MEDS ORDERED: NITROGLYCERIN 0.4 MG/HR PATCH TOP SCH (14:00)
--- NOTE | 2019-06-21 14:01 | RAD ---
EXAM: Chest,1 View HISTORY: Shortness of breath COMPARISON: CT chest 06/20/2019 Chest two views 06/20/2019 TECHNIQUE: Chest one view portable AP upright FINDINGS: Trachea midline. Heart size within normal limits. Mild hazy bilateral lower lung field opacities. No lung mass. No significant pleural effusion or pneumothorax. Thoracic spinal fusion hardware consisting of bilateral vertical rods and connecting bilateral pedicle bone screws. IMPRESSION: Mild hazy bilateral lower lung field opacities. Causes include infection and subsegmental atelectasis. Electronically signed by: Aldair Ayers MD 06/21/2019 2:00 PM [facility]
[2019-06-21] MEDS ORDERED: cefTRIAXone SODIUM 1 GM VIAL ONE ×2 (14:36→20:06)
[2019-06-21] MEDS ORDERED: SODIUM CHL 0.9% 50ML MIN-BAG+ 50 ML IVPB ONE ×2 (14:36→20:05)
[2019-06-21] MEDS: LEVALBUTEROL NEBS 1.25 MG/3 ML VIAL NEB SCH ×2 (15:00→22:50)
[2019-06-21] MEDS ORDERED: AZITHROMYCIN IV 500 MG VIAL IVPB ONE (15:15)
[2019-06-21] MEDS ORDERED: SODIUM CHLORIDE 0.9% 250ML 250 ML ONE (15:15)
[2019-06-21] MEDS: HYDROcodone 10MG/APAP 325MG 1 EA TAB PO PRN (15:31)
[2019-06-21] MEDS: AZITHROMYCIN IV 500 MG in SODIUM CHLORIDE 0.9% 250ML 250 ML IVPB SCH (15:49)
[2019-06-21] MEDS ORDERED: KETOROLAC TROMETHAMINE INJ 30 MG/ML VIAL IV ONE (15:55)
[2019-06-21] MEDS ORDERED: KETOROLAC TROMETHAMINE INJ 30 MG/ML VIAL ONE (16:02)
--- NOTE | 2019-06-21 16:10 | PN ---
SUPERVISING PHYSICIAN: João Crawford MD DATE: 06/21/19 SUBJECTIVE: The patient notes that he is still short of breath. Says he does not feel well, has no specific complaints. He has had no chest pains. He did run a fever yesterday around 2 o'clock of 101.5.. OBJECTIVE: VITAL SIGNS: T-max 101.5. Heart rate 96. Blood pressure 150/87. Respiratory rate 22. O2 saturation 93% on 3 liter nasal cannula. GENERAL: The patient appears to be in no acute distress. CHEST: Lung sounds are fairly clear, just with some noted rhonchi towards the bases bilaterally, more prominent on the posterior aspect. No rales or wheezing. CARDIAC: Regular rate and rhythm. ABDOMEN: Soft, obese, non-tender. Bowel sounds are present. EXTREMITIES: Without edema. NEUROLOGIC: Alert and oriented times three. LABORATORY: White count continues to be within normal limits at 7,800, hemoglobin 13,9, hematocrit 42.7. Platelet count is up at 100,000. Differential does continue to show a left shift. Chemistries show a sodium 127 with a correction of blood sugar of 129. Calcium 8.3, RADIOLOGY: No additional radiographic studies today. MICROBIOLOGY: Blood cultures still positive for gram positive cocci, awaiting final culture culture and sensitivity. Urine culture still pending. ASSESSMENT: 1. Influenza, non-A, non-B with bilateral pneumonia as noted on CT with continued fever with concerns for gram positive bacteremia, awaiting culture and sensitivity. 2. Gram positive bacteremia, etiology at this point is uncertain, although possibly pneumonia versus urinary tract infection, awaiting culture and sensitivity. 3. Urinary tract infection awaiting culture results. 4. Dehydration secondary to #1 requiring fluids, showing improvement, resolved. 5. Hyperglycemia complicated by infectious process from both bilateral pneumonia and urinary tract infection. 6. Enlarged liver and spleen, probably due to nonalcoholic steatosis, although needs followup in outpatient setting for further evaluation. 7. Thrombocytopenia in the setting of a splenomegaly, continue to observe, with no signs of bleeding. 8. Hypertension. 9. Hypothyroidism. PLAN: Will continue to cover for the gram positive cocci bacteremia with vancomycin and Rocephin. Levaquin has been added. He has cultures pending and as soon as we get those back we can target antibiotic therapy as appropriate. He remains on aggressive pulmonary hygiene. He is taking adequate intake, therefore, we will joo-lock him. His thrombocytopenia has improved enough that we can start him back on his Lovenox tonight. Blood sugars are a little bit better controlled after starting on Levemir. Hopefully, we will be able to transition to outpatient management pending his cultures, either by Sunday or Sunday. Until the, we will continue to monitor and treat as needed. #[id number] [facility]
[2019-06-21] MEDS ORDERED: ALPRAZolam 0.25 MG TAB PO ONE (21:38)
[2019-06-21] MEDS: IV SET AND CAP CHANGE INJ INJ SCH (21:45)
[2019-06-22] MEDS: VANCOMYCIN HCL INJ 2,000 MG in SODIUM CHLORIDE 0.9% 500ML 500 ML IVPB SCH (00:18)
[2019-06-22] MEDS: TEMAZEPAM 15 MG CAP PO PRN (00:19)
[2019-06-22] MEDS ORDERED: REMOVE OLD PATCH TOP ONE (02:00)
[2019-06-22] MEDS: cefTRIAXone SODIUM 1 GM in SODIUM CHL 0.9% 50ML MIN-BAG+ 50 ML IVPB SCH (02:14)
[2019-06-22] MEDS: PROMETHAZINE W/CODEINE SYR 5 ML UD PO PRN (05:16)
[2019-06-22] MEDS: PANTOPRAZOLE SODIUM IV 40 MG VIAL IV SCH (06:17)
[2019-06-22] MEDS: LEVOTHYROXINE SODIUM 0.025 MG TAB PO SCH (06:17)
[2019-06-22] MEDS: INSULIN LISPRO 100 UNITS/ML PEN SUBCU SCH ×2 (07:27→07:28)
--- NOTE | 2019-06-22 07:53 | RAD ---
EXAM DESCRIPTION: XR Chest, one view CLINICAL HISTORY: kathy pneumonia. COMPARISON: 06/21/2019 FINDINGS: The heart is normal in size. The pulmonary vascularity is normal. Patchy area of infiltrate is noted particularly in the right infrahilar region. No pneumothorax or pleural effusion is seen. The osseous structures appear unremarkable. Prior Campos andrez fixation of the mid and lower thoracic spine is noted. IMPRESSION: Persistent right infrahilar infiltrate. Electronically signed by: Chela Pepe MD 06/22/2019 7:50 AM [employer]
[2019-06-22] MEDS: LEVALBUTEROL NEBS 1.25 MG/3 ML VIAL NEB SCH (08:25)
[2019-06-22] MEDS: INSULIN DETEMIR 100 UNITS/ML PEN SUBCU SCH (08:41)
[2019-06-22] MEDS: SIMVASTATIN 10 MG TAB PO SCH (08:42)
[2019-06-22] MEDS: OSELTAMIVIR 75 MG CAP PO SCH (08:42)
[2019-06-22] MEDS: CELECOXIB 100 MG CAP PO SCH (08:42)
[2019-06-22] MEDS: ATENOLOL 25 MG TAB PO SCH (08:42)
[2019-06-22] MEDS: hydroCHLOROthiazide 25 MG TAB PO SCH (08:43)
[2019-06-22] MEDS: ASPIRIN (CHEWABLE) 81 MG TAB PO SCH (08:43)
[2019-06-22] MEDS: amLODIPine BESYLATE 5 MG TAB PO SCH (08:43)
[2019-06-22] MEDS: SODIUM CHLORIDE 0.9% (FLUSH) 10 ML SYG IV SCH (08:44)
[2019-06-22] MEDS: NON-FORMULARY MEDICATION 1 EA MIS (Liraglutide [Victoza] 18 MG) SC SCH (08:44)
[2019-06-22] MEDS: POLYETHYLENE GLYCOL 3350 17 GM PCKT PO SCH (08:44)
[2019-06-22] MEDS: CANAGLIFLOZIN 100 MG PO SCH (08:45)
[2019-06-22] MEDS ORDERED: FUROSEMIDE INJ 40 MG/4 ML VIAL IV SCH (09:00)
[2019-06-22] MEDS ORDERED: NITROGLYCERIN 0.4 MG/HR PATCH TOP SCH (09:00)
[2019-06-22 10:27] VITALS: BP 115/64; TEMP 98.3; O2SAT 96
[2019-06-22] MEDS ORDERED: REMOVE OLD PATCH TOP SCH (21:00)
--- NOTE | 2019-06-29 13:23 | DS ---
SUPERVISING PHYSICIAN: João Crawford M.D. ADMISSION DIAGNOSIS: 1. Influenza, non-A, non-B. 2. Dehydration secondary to elevated temperature and flu. 3. Hyperglycemia, most likely secondary to infectious process. 4. Diabetes mellitus, type 2. 5. Hypertension. 6. Hypothyroidism. DISCHARGE DIAGNOSIS: 1. Influenza, non-A, non-B with bilateral pneumonia as noted on CT with continued fever with concerns for gram positive bacteremia, awaiting culture and sensitivity. 2. Gram positive bacteremia, etiology at this point is uncertain, although possibly pneumonia versus urinary tract infection, awaiting culture and sensitivity. 3. Urinary tract infection awaiting culture results. 4. Dehydration secondary to #1 requiring fluids, showing improvement, resolved. 5. Hyperglycemia complicated by infectious process from both bilateral pneumonia and urinary tract infection. 6. Enlarged liver and spleen, probably due to nonalcoholic steatosis, although needs followup in outpatient setting for further evaluation with radiographic studies suggesting liver cirrhosis without any evidence of abnormal liver enzymes needing followup as an outpatient. 7. Thrombocytopenia in the setting of a splenomegaly, continue to observe, with no signs of bleeding. 8. Hypertension. 9. Hypothyroidism. REASON FOR HOSPITALIZATION: This is a 58-year-old male patient who presented to the Emergency Room for the second time in 24 hours with flu-like symptoms. He has had a fever up to 103.3 as well as a headache, muscle aches and pains with nasal congestion. His initial flu swab at his prior ER visit was negative for flu A and B. He had a urinalysis that was also negative. He was unable to get his Tamiflu and his symptoms worsened, so he came to the hospital again for treatment due to what he felt was dehydration. In the Emergency Room, his initial vital signs were temperature 98.7, heart rate 81, blood pressure 172/89, respiratory rate 18, O2 saturation 94%. CBC was basically unremarkable although he did have a mild left shift on his differential. His sodium was low at 128 with chloride 92. Glucose was 389. Chest x-ray was obtained and showed no acute cardiopulmonary abnormalities with low lung volumes. He was given some fluids, given some Toradol as well as several of his blood pressure medications and due to his symptoms as well as dehydration, I was called for admission to the hospital. LABORATORY: CBC on admission showed white count 6,900, at discharge was 5,700. Hemoglobin and hematocrit were stable, on discharge 14.4 and 44.5 respectively. Differential showed to be with a left shift but no bands. Differential was showing to be resolving prior to discharge. Coagulation studies showed normal PT and PTT. Blood gas analysis on initial admission showed a pH of 7.44, pCO2 of 33, pO2 of 60, bicarb 22, satting 92% on 3 liters nasal cannula. Chemistries on admission showed a low sodium at 128, on discharge was 133. Creatinine and BUN were within normal limits, creatinine on discharge was 1. Blood sugars were elevated between 167 up to 296. Liver functions were showing to be within normal limits. Amylase and lipase were both within normal limits. Total bilirubin was slightly elevated at 1.5. Urinalysis showed 100 protein, greater than 1,000 of glucose with large blood and a trace of leukocyte esterase. RBCs were 20 to 30, WBCs 10 to 20, epithelials 0 to 1 and 2+ bacteria. He had several vancomycin troughs, the last one on 06/21/19 was showing to be at 19.2. Monoscreen and Group A were both negative. MICROBIOLOGY: He did have multiple blood cultures that were positive for gram positive cocci. Influenza A and B by PCR were negative. Preliminary culture result on his urine was showing greater than 100,000 Staphylococcus species. There were no reports available with final culture and sensitivity at time of discharge. Troponins were noted to be within normal limits at 0.03. EKG showed atrial fibrillation with rapid ventricular response at a rate of 139 with no other acute findings with the patient not having any chest pains. RADIOLOGY: Initial chest x-ray in the Emergency Room showed no acute cardiopulmonary abnormalities, just low lung volume. He had multiple x-rays as well as a chest CT. Chest CT with contrast showed small bilateral pleural effusions in the dependent portions of the chest, bilateral posterior lobe pulmonary infiltrate suggesting pneumonia versus aspiration. He also had an abdomen and pelvis with contrast CT that showed hepatomegaly with nodular appearance to the left liver capsule and enlarged left lobe suggesting cirrhosis versus diffuse fatty abnormality. Small amount of ascites in the pelvis. Gallbladder was noted to be thickened seen on ultrasound from previous studies but no cholelithiasis on ultrasound. Gallbladder wall thickening could be due to ascites, pleural effusions or fatty disease. There is noted nonobstructing bilateral nephrolithiasis as well as colon diverticulosis without any evidence of diverticulitis on CT. Please see those reports for details. Final chest x- ray on date of discharge and transfer showed persistent right infrahilar infiltrate. Lumbar spine CT showed multilevel chronic-appearing facet and disc degeneration with mild spinal stenosis of L2 and L3. Please see that full report for details. He also had an abdominal ultrasound and per radiology interpretation showed enlarged hyperechoic liver with coarse texture and subtle liver surface irregularly consistent with cirrhosis. HOSPITAL COURSE: Mr. Syed was admitted on 06/18/19 for flu-like symptoms with subsequent pneumonia as well as urinary tract infection. He did have blood cultures come up positive for gram positive cocci. He was treated aggressively with antibiotics that included Rocephin, azithromycin and vancomycin. He was also started on antivirals with Tamiflu. He was provided aggressive pulmonary hygiene. He did develop an episode of atrial fibrillation with rapid ventricular response which is a new onset for him which is probably due to the lack of beta blockade as he missed a couple of doses of his metoprolol. His rate was easily controlled with reinitiation of his beta elizabeth. He had no chest pains with this. He did develop some pulmonary edema infiltrates and was diuresed as he had gotten fairly aggressive fluid management initially on admission. He responded well to treatment but his respiratory picture continued to show increase in efforts to require more oxygen. He did have initial temperature on admission of 102.9 with a last temperature being recorded on 127 resulting in his temperature being afebrile for 48 hours prior to discharge. On the morning of discharge, the patient and his family, including his , requested that the patient be transferred to a higher level of care as they felt that he was not improving as expected. Given the fact that he did have a gram positive cocci bacteremia, urinary tract infection, pneumonia and new onset atrial fibrillation and was showing slow clinical improvement, arrangements were made with [facility] for transfer of the patient for a higher level of care to the hospitalist service and a specialty not available in [place]. On discharge, the patient was showing a temperature of 98.3, pulse 89, blood pressure 115/64, satting 96% on 7 liters high flow nasal cannula with respirations 16. PHYSICAL ASSESSMENT: GENERAL: The patient appears to be in no acute distress. CHEST: Lung sounds are fairly clear, just with some noted rhonchi towards the bases bilaterally, more prominent on the posterior aspect. No rales or wheezing. CARDIAC: Regular rate and rhythm. ABDOMEN: Soft, obese, non-tender. Bowel sounds are present. EXTREMITIES: Without edema. NEUROLOGIC: Alert and oriented times three. The patient was transferred via ground ambulance to [facility]. PLAN: Mr. Syed was transferred to [facility] for further higher level of care. Antibiotics were continued on discharge and transfer. Report was called to the hospitalist receiving and it was requested at that time by the hospitalist that the patient would go through the Emergency Room for further evaluation. DISPOSITION: The patient was transferred via ambulance to [facility]. Condition on discharge was stable but guarded. #[id number] [facility]
== END 2019-06-22 12:10 | disposition short-term general hospital (02) | DRG 871 ==
LOC: ER 17:23 → MS 21:16 → OBSVTOIN 06-20 10:04
PROVIDERS: ADMIT Nurse Practitioner Acute Care; ATTEND Nurse Practitioner Family
PROC: BW241ZZ Computerized Tomography (CT Scan) of Chest and Abdomen using Low Osmolar Contrast (ICD-10-PCS; principal; 2019-06-20)
DX: R78.81 Bacteremia (principal); J11.00 Influenza due to unidentified influenza virus with unspecified type of pneumonia; N39.0 Urinary tract infection, site not specified; E86.0 Dehydration; E11.65 Type 2 diabetes mellitus with hyperglycemia; K75.81 Nonalcoholic steatohepatitis (NASH); D69.6 Thrombocytopenia, unspecified; I10 Essential (primary) hypertension; E03.9 Hypothyroidism, unspecified; I48.91 Unspecified atrial fibrillation; E66.9 Obesity, unspecified; G89.29 Other chronic pain; M54.5 Low back pain; G47.33 Obstructive sleep apnea (adult) (pediatric); E78.5 Hyperlipidemia, unspecified

== ENCOUNTER → 2019-08-07 | Outpatient (CLI) | payer OTHER | LOC: RESP 10:43 | PROVIDERS: ATTEND Nurse Practitioner Family | DX: I48.91 Unspecified atrial fibrillation (principal) ==

== ENCOUNTER 2019-09-06 | Emergency (ER) | payer OTHER | END 2019-09-06 23:25 | disposition home or self-care (01) | CPT/HCPCS: 71045; 80053; 82550; 82553; 83735; 83880; 84484; 85025; 85610; 85730; 87502; 93005; 94760; J7030; J7614; J7644 ==

== ENCOUNTER → 2020-01-28 | Outpatient (CLI) | payer OTHER ==
--- NOTE | 2020-01-29 13:38 | MRI ---
EXAM DESCRIPTION: Thoracic Spine w/o Contrast: Magnetic Resonance Imaging. CLINICAL HISTORY: STENOSIS COMPARISON: MRI scan lumbar spine on same visit. TECHNIQUE: Multiplanar, multiple standard sequences, non contrast MRI, thoracic spine. FINDINGS: Posterior transpedicular spinal fusion from T6 to T11. Bilateral screws at T6 and T7, also T10 and T11. Unilateral posterior transpedicular screw on the left at T9. Unilateral connecting rods. Fluid posterior to the spinal canal at the T7 and T8 level which extends into the left foramen around the exiting T7 nerve. Question of a cleft between the posterior ligament in the midline and the fluid collection which may be communicating with the posterior subarachnoid space. The T7-T8 disc is herniated to the left of midline impressing on the ventral thoracic cord and extruding above the disc space. Mild canal stenosis. This is at the same level as the above-mentioned defect. Mild to moderate narrowing of the right foramen. No unusual or abnormal fluid collections elsewhere associated with the hardware or the subarachnoid space. Mild spondylosis of the disc space at T8-T9 but no disc bulging. Canal and foramina are patent. Endplate concavities and mild spondylosis at T9-T10 and T10-T11. No canal stenosis at any level or foraminal stenosis at T9-T10. Hypertrophic spur on the left T10-T11 facet is encroaching on the left foramen and possible compromise of minimal edema in the soft tissues posterior to the facet joint. The left T10 nerve. No fluid or soft tissue mass associated with the fusion hardware at these levels. Other discs with normal signal. Disc spaces are preserved. Canal and foramina are patent. Facet joints are unremarkable. Conus terminates T12-L1. Cord with normal signal, no compression. Mid thoracic dextroscoliosis. Paravertebral soft tissues are unremarkable. Otherwise normal marrow signal in the remaining vertebral bodies and the posterior elements. Vertebral bodies are not compressed at any level. IMPRESSION: 1. Fluid collection at the T7-T8 level in the midline into the left of midline posterior to the spinal canal but may be communicating with the epidural space and possibly subarachnoid space. Left posterior protrusion of the T7-T8 disc at the same level impressing on the cord and resulting in mild canal stenosis. Fluid impressing on the left C7 nerve in the foramen. Consider CT myelogram. 2. Fusion hardware appears intact. No complications at other levels. 3. Inflammation and hypertrophy of the left T10-T11 facet joint resulting in left foraminal stenosis and possible compromise left T10 nerve. Electronically signed by: Carlitos Eng MD 01/29/2020 1:36 PM CDT
--- NOTE | 2020-01-29 14:26 | MRI ---
EXAM DESCRIPTION: Lumbar Spine w/o Contrast : Magnetic Resonance Imaging. CLINICAL HISTORY: LOW BACK PAIN COMPARISON: MRI scan thoracic spine on the same visit. CT scan lumbar spine May 2019. MRI scan lumbar spine January 2019. TECHNIQUE: Multiplanar, multiple standard sequences, non contrast MRI, lumbar spine. FINDINGS: L5-S1: The disc is well visualized on axial T2 series 501, image 3. The disc is rudimentary with sacralization of the canal and bilateral foramina. Mild narrowing but no disc bulge or herniation. Bilateral foraminal narrowing. L5 is transitional, partially sacralized on the right with articulation with the talar and iliac bone. Hypertrophic degeneration left facet joint with rudimentary right facet joint. L4-L5: Disc desiccation and 2 mm grade 1 retrolisthesis. Posterior midline disc bulge 5 mm. Hypertrophic changes in the posterior flavum ligaments and facet joints (canal elements). Disc also bulging into the left foramen which is borderline stenotic. Mild foraminal narrowing left and mild to moderate canal narrowing. L3-L4: Minimal disc desiccation with disc space maintained. Hypertrophic changes in the canal elements and disc bulge into the left foramen with borderline stenosis. Moderate canal and right foraminal narrowing. L2-L3: Disc desiccation and posterior disc space loss. Minimal anterior bulging. Right posterior 5 mm disc protrusion encroaching on the right subarticular recess and right L3 nerve. Disc also encroaching on the bilateral foramina. Hypertrophic changes in the canal elements. AP canal diameter 8 mm. Right side moderate endplate reactive changes with disc spur complex encroaching on the right foramen which is almost stenotic. Mild to moderate narrowing of the left foramen. L1-L2: Disc desiccation with anterior bulging and mild anterior endplate reactive changes. Schmorl's node superior L2 endplate. Tiny posterior disc bulge. Hypertrophic changes in the canal elements. Mild canal and bilateral foraminal narrowing. T12-L1: Disc desiccation with anterior bulging. No posterior bulging. Anterior right mild endplate reactive changes. Inactive Schmorl's nodes. Canal elements unremarkable. Canal and foramina are patent. Conus terminates at this level. Minimal upper lumbar levoscoliosis. Paravertebral soft tissues minimal paraspinal atrophy.. Distal cord normal signal and caliber. Otherwise normal marrow signal in the remaining vertebral bodies and the posterior elements. Vertebral bodies are not compressed at any level. IMPRESSION: 1. Multiple levels of dislocated discs, endplate spondylosis and reactive changes. And hypertrophic changes in the canal elements. 2. Posterior midline L4-L5 disc bulge with grade 1 anterolisthesis. Borderline left foraminal stenosis, stable since the prior study. 3. Disc bulge into the left foramen at L3-L4 with borderline stenosis, and no interval change. 4. Spondylosis L2-L3 and more severe in the midline into the right of midline. Mild to moderate central canal stenosis has progressed since the prior study. Electronically signed by: Carlitos Eng MD 01/29/2020 2:24 PM CDT
== END ==
LOC: MRI 08:05
PROVIDERS: ATTEND Specialist
DX: M51.9 Unspecified thoracic, thoracolumbar and lumbosacral intervertebral disc disorder (principal); M51.24 Other intervertebral disc displacement, thoracic region; M48.04 Spinal stenosis, thoracic region; M48.061 Spinal stenosis, lumbar region without neurogenic claudication; M51.36 Other intervertebral disc degeneration, lumbar region; M51.86 Other intervertebral disc disorders, lumbar region; M47.896 Other spondylosis, lumbar region; M46.96 Unspecified inflammatory spondylopathy, lumbar region; M43.16 Spondylolisthesis, lumbar region; R60.9 Edema, unspecified; Z98.1 Arthrodesis status

== ENCOUNTER → 2020-07-29 | Outpatient (CLI) | payer OTHER ==
--- NOTE | 2020-07-29 14:04 | MRI ---
MRI right shoulder without contrast INDICATION: Limited range of motion no specific injury shoulder pain initial encounter TECHNIQUE: Noncontrast MR imaging right shoulder FINDINGS: Moderate to severe hypertrophic AC joint osteoarthrosis with active edema/fluid. Mild subacromial and subdeltoid bursal edema. Interstitial tendinosis insertional supraspinatus with adjacent reactive/resorptive cysts at the greater tuberosity. No detachment or retraction. There is diffuse fissuring likely nondisplaced tear superior and posterior superior labrum. Minimal grade 1 marbling throughout the rotator cuff muscle bellies without advanced atrophy. Interstitial partial tear subscapularis approaching 50% partial-thickness on the sagittal T2 fat suppressed images. No detachment. There is interstitial partial tear long head bicep with slight medialization but no complete rupture or dislocation. Small cyst is developing within the extracapsular bicep axial series 301 image 1. Degenerative signal throughout the posterior labrum on the axial images as well. IMPRESSION: Significant interstitial partial tear throughout the subscapularis without retraction or bicep dislocation Interstitial partial tear extracapsular bicep without complete rupture or dislocation Advanced AC joint osteoarthrosis Mild chronic labral tear especially posterior superior without displacement Resorption/reactive cystic change anterior greater tuberosity horizontal facet region without supraspinatus detachment. Electronically signed by: Stephon Childers MD 07/29/2020 2:02 PM [employer]
== END ==
LOC: MRI 08:15
PROVIDERS: ATTEND Family Medicine
DX: S46.011A Strain of muscle(s) and tendon(s) of the rotator cuff of right shoulder, initial encounter (principal); S46.211A Strain of muscle, fascia and tendon of other parts of biceps, right arm, initial encounter; S43.431A Superior glenoid labrum lesion of right shoulder, initial encounter; M19.011 Primary osteoarthritis, right shoulder; M89.8X2 Other specified disorders of bone, upper arm